=== PATIENT | female | born 1955 | race Caucasian/White ===

== ENCOUNTER 2021-10-16 13:17 | Outpatient (CLI) | payer OTHER, SELFPAY ==
--- NOTE | ~2021-10-16 | MMUS_ITS ---
EXAMINATION: MM diagnostic yuan BI w leidy, US breast LT limited HISTORY: Palpable lump in the upper, central left breast, patient reports history of recent breast tr auma. TECHNIQUE: Craniocaudal, mediolateral, and mediolateral oblique 3-D tomosynthesis images of the breas ts were performed and synthetic 2-D images were generated. CAD analysis was submitted and interpreted . High resolution limited left breast ultrasound was performed. COMPARISON: No prior mammogram is currently available for comparison BREAST PARENCHYMAL COMPOSITION: There are scattered areas of fibroglandular density. FINDINGS: MAMMOGRAPHIC FINDINGS: Scattered benign-appearing calcifications are present. There is no evidence of suspicious mass, calci fication, or architectural distortion in either breast to suggest malignancy. No mammographic correl ate is identified for the reported palpable abnormality of the left breast. ULTRASOUND: There is no evidence of focal abnormal solid or cystic mass in the vicinity of the reported palpable abnormality of the left breast. There is somewhat heterogeneous echotexture of the breast at this loc ation, suggestive of resolving breast hematoma. IMPRESSION: 1. No suspicious mammographic or sonographic correlate is identified for the reported palpable abnorm ality of concern of the left breast Further evaluation at this time should be based on clinical asses sment. Continued follow-up physical examination is recommended. 2. Recommend routine screening mammography in one year. BI-RADS Category 2: Benign finding(s). Reviewed, dictated and finalized at location A. TH OFFICER IMPRESSION: 1. No suspicious mammographic or sonographic correlate is identified for the re ported palpable abnormality of concern of the left breast Further evaluation at this time should be based on clinical assessment. Continued follow-up physical examination is recommended. 2. Recommend routine screening mammography in one year. BI-RADS Category 2: Benign finding(s).
== END 2021-10-16 13:18 | disposition home or self-care (01) ==
LOC: ANHIMG 13:21
PROVIDERS: Visit Provider Internal Medicine Gastroenterology
DX: R92.8 Other abnormal and inconclusive findings on diagnostic imaging of breast (principal); S29.9XXA Unspecified injury of thorax, initial encounter
CPT/HCPCS: 76642; 77062; 77066; G0279

== ENCOUNTER 2022-03-25 11:04 | Outpatient (CLI) | payer MEDICARE, MEDICAID, SELFPAY ==
--- NOTE | 2022-03-25 12:00 | NEURO_ITS ---
Impression: # Complains of numbness of hands. # No Carpal Tunnel Syndrome or ulnar neuropathy. # Left median sensory neuropathy. # Needle/EMG exam not neurogenic but decreased motor unit potentials noted. Nerve Conduction Studies Anti Sensory Summary Table Stim Site NR Peak (ms) P-T Amp (?V) Site1 Site2 Delta-P (ms) Dist (cm) Gadiel (m/s) Left Median Anti Sensory (2-3nd Digit) NO RESPONSE Wrist NR Wrist 2-3nd Digit 14.0 Wrist NR Wrist 2-3nd Digit 14.0 Right Median Anti Sensory (2-3nd Digit) Wrist 3.1 24.5 Wrist 2-3nd Digit 3.1 14.0 45 Wrist 3.1 8.4 Wrist 2-3nd Digit 3.1 14.0 45 Left Radial Anti Sensory (Base 1st Digit) Wrist 2.5 12.1 Wrist Base 1st Digit 2.5 0.0 Right Radial Anti Sensory (Base 1st Digit) Wrist 2.4 20.6 Wrist Base 1st Digit 2.4 0.0 Left Ulnar Anti Sensory (5th Digit) Wrist 2.2 61.1 Wrist 5th Digit 2.2 14.0 64 Right Ulnar Anti Sensory (5th Digit) Wrist 2.4 42.9 Wrist 5th Digit 2.4 14.0 58 Motor Summary Table Stim Site NR Onset (ms) O-P Amp (mV) Site1 Site2 Delta-0 (ms) Dist (cm) Gadiel (m/s) Left Median Motor (Abd Poll Brev) Wrist 3.4 1.0 Elbow Wrist 5.5 28.0 51 Elbow 8.9 0.3 Right Median Motor (Abd Poll Brev) Wrist 3.3 2.5 Elbow Wrist 5.4 28.0 52 Elbow 8.7 2.8 Left Ulnar Motor (Abd Dig Minimi) Wrist 2.7 5.8 A Elbow Wrist 5.3 31.0 58 A Elbow 8.0 4.5 Right Ulnar Motor (Abd Dig Minimi) Wrist 2.5 4.4 A Elbow Wrist 5.4 29.0 54 A Elbow 7.9 3.7 F Wave Studies NR F-Lat (ms) L-R F-Lat (ms) Left Median (Mrkrs) (Abd Poll Brev) 27.90 0.04 Right Median (Mrkrs) (Abd Poll Brev) 27.86 0.04 Left Ulnar (Mrkrs) (Abd Dig Min) 28.91 1.21 Right Ulnar (Mrkrs) (Abd Dig Min) 30.12 1.21 EMG Side Muscle Nerve Root Ins Act Fibs Amp Dur Recrt Comment Right 1stDorInt Ulnar C8-T1 Nml Nml Nml Nml Reduced Right Ext Indicis Radial (Post Int) C7-8 Nml Nml Nml Nml Nml Right Ext Digitorum Radial (Post Int) C7-8 Nml Nml Nml Nml Nml Right BrachioRad Radial C5-6 Nml Nml Nml Nml Nml Right PronatorTeres Median C6-7 Nml Nml Nml Nml Nml Right Abd Poll Brev Median C8-T1 Nml Nml Nml Nml Reduced Left 1stDorInt Ulnar C8-T1 Nml Nml Nml Nml Reduced Left Ext Indicis Radial (Post Int) C7-8 Nml Nml Nml Nml Nml Left Ext Digitorum Radial (Post Int) C7-8 Nml Nml Nml Nml Nml Left BrachioRad Radial C5-6 Nml Nml Nml Nml Nml Left PronatorTeres Median C6-7 Nml Nml Nml Nml Nml Left Abd Poll Brev Median C8-T1 Nml Nml Nml Nml Reduced Right ABD Dig Min Ulnar C8-T1 Nml Nml Nml Nml Reduced Left ABD Dig Min Ulnar C8-T1 Nml Nml Nml Nml Reduced MTDD
== END 2022-03-25 11:05 | disposition home or self-care (01) ==
LOC: ANHNEURO 11:09
PROVIDERS: Visit Provider Internal Medicine Gastroenterology
DX: G56.12 Other lesions of median nerve, left upper limb (principal); R20.0 Anesthesia of skin
CPT/HCPCS: 95886; 95911

== ENCOUNTER 2022-05-19 10:16 | Outpatient (CLI) | payer MEDICARE, MEDICAID, SELFPAY ==
--- NOTE | 2022-05-19 11:00 | NEURO_ITS ---
Impression: # Complains of nerve dysfunction. Unable to dorsiflex toes. # Borderline asymmetrical neuropathy. # Mildly abnormal needle/EMG exam of EDL. # Clinical correlation recommended. Nerve Conduction Studies Anti Sensory Summary Table Stim Site NR Peak (ms) P-T Amp (?V) Site1 Site2 Delta-P (ms) Dist (cm) Gadiel (m/s) Left Sup Fibular Anti Sensory (Ant Lat Mall) 14 cm 3.4 14.2 14 cm Ant Lat Mall 3.4 16.0 47 Right Sup Fibular Anti Sensory (Ant Lat Mall) 14 cm 3.4 15.8 14 cm Ant Lat Mall 3.4 16.0 47 Left Sural Anti Sensory (Lat Mall) Calf 3.0 5.6 Calf Lat Mall 3.0 16.0 53 Right Sural Anti Sensory (Lat Mall) Calf 3.2 11.6 Calf Lat Mall 3.2 16.0 50 Motor Summary Table Stim Site NR Onset (ms) O-P Amp (mV) Site1 Site2 Delta-0 (ms) Dist (cm) Gadiel (m/s) Left Peroneal Motor (Vastus Med) Ankle 4.5 2.9 Popit Ankle 9.3 41.0 44 Popit 13.8 2.3 Right Peroneal Motor (Vastus Med) Ankle 4.0 3.8 Popit Ankle 8.8 36.0 41 Popit 12.8 3.1 Left Tibial Motor (Abd Delarosa Brev) Ankle 4.1 3.9 Knee Ankle 10.6 42.0 40 Knee 14.7 2.8 Right Tibial Motor (Abd Delarosa Brev) Ankle 4.5 2.9 Knee Ankle 9.3 39.0 42 Knee 13.8 1.4 F Wave Studies NR F-Lat (ms) L-R F-Lat (ms) Left Peroneal (Mrkrs) (EDB) 56.42 0.00 Right Peroneal (Mrkrs) (EDB) 56.42 0.00 Left Tibial (Mrkrs) (Abd Hallucis) 56.29 0.08 Right Tibial (Mrkrs) (Abd Hallucis) 56.21 0.08 EMG Side Muscle Nerve Root Ins Act Fibs Amp Dur Recrt Comment Right AntTibialis Dp Br Fibular L4-5 Nml Nml Nml Nml Nml Right Gastroc Tibial S1-2 Nml Nml Nml Nml Nml Right Fibularis Long Sup Br Fibular L5-S1 Nml Nml Nml Nml Nml Right Flex Dig Long Tibial L5-S2 Nml Nml Nml Nml Nml Right Ext Dig Brev Dp Br Fibular L5, S1 Nml Nml Nml Nml Nml Left AntTibialis Dp Br Fibular L4-5 Nml Nml Nml Nml Nml Left Gastroc Tibial S1-2 Nml Nml Nml Nml Nml Left Fibularis Long Sup Br Fibular L5-S1 Nml Nml Nml Nml Nml Left Flex Dig Long Tibial L5-S2 Nml Nml Nml Nml Nml Left Ext Dig Brev Dp Br Fibular L5, S1 Nml Nml Nml Nml Nml Right Ext Dig Long Dp Br Fibular L5-S1 Nml Nml Nml Nml Reduced Left Ext Dig Long Dp Br Fibular L5-S1 Nml Nml Nml Nml Reduced MTDD
== END 2022-05-19 10:17 | disposition home or self-care (01) ==
LOC: ANHNEURO 10:18
PROVIDERS: Visit Provider Internal Medicine Gastroenterology
DX: G35 Multiple sclerosis (principal); G62.9 Polyneuropathy, unspecified; R94.131 Abnormal electromyogram [EMG]
CPT/HCPCS: 95886; 95910

== ENCOUNTER 2024-04-14 10:50 | Outpatient (CLI) | payer MEDICARE, SELFPAY ==
--- NOTE | 2024-04-14 13:45 | NEURO_ITS ---
Clinical note: Patient is 69 years old with history of paresthesias in both upper limbs. On examination significant atrophy of the thenar muscle was noted on both sides. This study is being performed for further evaluation of peripheral neurologic conditions. The results are as follows. Summary of findings: 1. Left and right median palmar and digital sensory were absent. Left and right radial sensory distal latencies and amplitudes were within normal limits. Left and right ulnar sensory distal latencies were within normal limits however amplitudes were mildly decreased on the right and normal on the left side. 2. Left median motor over abductor pollicis brevis was absent was right median motor distal initial moderately prolonged amplitude was markedly decreased. 3. Left and right median and ulnar motor studies were performed while recording over 2nd lumbrical and 2nd interossei. Median motor distal latency was mildly prolonged on the right and comparable on the left side however median motor amplitudes were significantly decreased. 4. Left and right ulnar motor distal latencies amplitudes and conduction velocities were within normal limits. There is no significant slowing across the elbow. 5. EMG and nerve study shows significant denervation changes in the right abductor pollicis brevis and significant decreased motor unit recruitment. No motor units were identified in the left abductor pollicis brevis. Impression: This study supportive diagnosis profoundly severe bilateral carpal tunnel syndrome. It should be noted there is a greater involvement of the median motor branch to the thenar muscles. No motor unit recruitment was noted in the left abductor pollicis brevis were significant denervation changes and marked loss of recruitment was noted in the right abductor pollicis brevis. Remainder of the findings are considered essentially within acceptable normal limits. No supportive evidence for ulnar neuropathy or brachial plexopathy or C5-T1 radiculopathy. Please feel free to call me if you have any questions with regard to study. Ruth Rolle MD, FAAN, FAANEM Neurology / Electrodiagnostic Medicine Nerve Conduction Studies Anti Sensory Summary Table Stim Site NR Peak (ms) P-T Amp (?V) Site1 Site2 Delta-P (ms) Dist (mm) Gadiel (m/s) Left Median DIII Anti Sensory (3rd Digit) no Wrist NR Wrist 3rd Digit 145 Right Median DIII Anti Sensory (3rd Digit) Wrist NR Wrist 3rd Digit 130 Left Radial Anti Sensory (Base 1st Digit) Wrist 2.1 20.7 Wrist Base 1st Digit 2.1 80 38 Right Radial Anti Sensory (Base 1st Digit) Wrist 2.0 20.2 Wrist Base 1st Digit 2.0 80 40 Left Ulnar Anti Sensory (5th Digit) Wrist 2.9 14.8 Wrist 5th Digit 2.9 125 43 Right Ulnar Anti Sensory (5th Digit) Wrist 3.5 24.4 Wrist 5th Digit 3.5 140 40 Motor Summary Table Stim Site NR Onset (ms) O-P Amp (mV) Site1 Site2 Delta-0 (ms) Dist (mm) Gadiel (m/s) Left (Lum2/Int2) Median/Ulnar motor 3.0 0.9 2.6 5.6 Right (Lum2/Int2) Median/Ulnar motor 3.3 1.4 2.6 4.8 Left Median Motor (Abd Poll Brev) no Wrist NR Wrist Wrist 0 Elbow NR Wrist Elbow 225 Right Median Motor (Abd Poll Brev) Wrist 4.9 0.4 Wrist Wrist 0.0 0 Elbow 8.2 0.1 Wrist Elbow 3.3 210 64 Left Ulnar Motor (Abd Dig Minimi) Wrist 2.4 6.8 Wrist Wrist 0.0 80 B Elbow 6.2 6.2 B Elbow Wrist 3.8 220 58 A Elbow 7.6 5.5 A Elbow B Elbow 1.4 80 57 Right Ulnar Motor (Abd Dig Minimi) Wrist 2.7 5.9 Wrist Wrist 0.0 80 B Elbow 6
== END 2024-04-14 10:51 | disposition home or self-care (01) ==
PROVIDERS: PCP Internal Medicine Gastroenterology; Visit Provider Psychiatry & Neurology Neurology
DX: E11.9 Type 2 diabetes mellitus without complications (principal); G56.03 Carpal tunnel syndrome, bilateral upper limbs; G62.9 Polyneuropathy, unspecified; R27.0 Ataxia, unspecified; R29.6 Repeated falls
CPT/HCPCS: 95886; 95913

== ENCOUNTER 2024-05-12 10:58 | Outpatient (CLI) | payer MEDICARE, SELFPAY ==
--- NOTE | 2024-05-12 12:40 | NEURO_ITS ---
Clinical note: The patient is 68 years old with history of paresthesias in both feet and legs. Also has pain in the lower back for last 15 years. History of falling at home. On brief neurological examination no focal muscle wasting or fasciculations were seen in lower limbs. Summary of findings: 1. Bilateral H reflex latencies were mildly prolonged and amplitudes are moderately decreased. 2. Bilateral sural and right medial plantar sensory were absent. Right peroneal sensory Distal latency andamplitude was within acceptable normal limits. 3. Bilateral peroneal motor distal latencies and conduction velocities were within acceptable normal limits however amplitudes were moderately decreased. 4. Bilateral tibial motor distal latencies and conduction velocities were within acceptable normal limits however amplitudes were mildly decreased. 5. EMG examination performed were muscles in both lower limbs in L3-S1 distribution and related paraspinal muscles were examined. No denervation changes were seen. Motor unit amplitude, duration and recruitment pattern where within acceptable normal limits. Impression: EMG and nerve conduction study of both lower limbs show evidence of mild moderate, length dependent, diffuse, sensory motor polyneuropathy of axonal type. Clinical and a trilogy correlation are recommended. There is no supportive evidence for L3 to S1 radiculopathy at this time. However radiographic correlation should be considered if clinically relevant. SLAVA REDD MD, FAAN, FAANEM Neurology / Electrodiagnostic Medicine Nerve Conduction Studies Motor Nerve Results Latency Amplitude Segment Distance CV CV Site (ms) Norm (mV) Norm (mm) (m/s) Norm Left Fibular (EDB) Motor Ankle 3.9 < 6.1 1.53 > 2.0 Bel Fib Head 10.6 - 1.36 - Bel Fib Head-Ankle 280 42 > 38 Pop Fossa 11.7 - 1.14 - Pop Fossa-Bel Fib Head 65 59 > 42 Right Fibular (EDB) Motor Ankle 4.4 < 6.1 1.65 > 2.0 Bel Fib Head 11.0 - 1.46 - Bel Fib Head-Ankle 280 42 > 38 Pop Fossa 12.4 - 1.40 - Pop Fossa-Bel Fib Head 70 50 > 42 Left Tibial (AHB) Motor Ankle 5.1 < 6.1 5.5 > 4.4 Knee 14.1 - 3.3 - Knee-Ankle 400 44 > 39 Right Tibial (AHB) Motor Ankle 4.5 < 6.1 4.0 > 4.4 Knee 14.2 - 2.4 - Knee-Ankle 380 39 > 39 Sensory Nerve Results Latency (Peak) Amplitude (P-P) Segment Distance CV CV Site (ms) Norm (?V) Norm (mm) (m/s) Norm Right Medial Plantar (Mixed) Sensory Med Sole-Med Mall NR < 3.7 > 10 Med Sole-Med Mall 80 - Left Superficial Fibular Sensory 14 cm-Ankle 3.2 - 10 > 5 14 cm-Ankle 100 31 > 32 Left Sural Sensory Calf-Lat Mall NR < 4.0 NR > 5 Calf-Lat Mall 140 NR > 35 Right Sural Sensory Calf-Lat Mall NR < 4.0 NR > 5 Calf-Lat Mall - NR > 35 H-Reflex Results M-Lat H Lat H-M Lat Site (ms) (ms) Norm (ms) Left Tibial H-Reflex Pop Fossa - 39.6 - - Right Tibial H-Reflex Pop Fossa 4.7 38.3 - 33.6 Electromyography Side Muscle Nerve Ins Act Fibs Psw Amp Dur Recrt Comment Right BicepsFemS Sciatic Nml Nml Nml Nml Nml Nml Right Semimembranosus Sciatic Nml Nml Nml Nml Nml Nml Right AntTibialis Dp Br Fibular Nml Nml Nml Nml Nml Nml Right Gastroc Tibial Nml Nml Nml Nml Nml Nml Right VastusMed Femoral Nml Nml Nml Nml Nml Nml Left BicepsFemS Sciatic Nml Nml Nml Nml Nml Nml Left Semimembranosus Sciatic Nml Nml Nml Nml Nml Nml Left AntTibialis Dp Br Fibular Nml Nml Nml Nml Nml Nml
[2024-05-12 13:09] LABS: Basophils Percent Auto 0.6 % (0.2-1.2); Eosinophils Absolute Auto 0.2 K/mm3 (0-0.3); Eosinophils Percent Auto 2.5 % (0-4.4); Hematocrit 33.2 % (37.0-47.0); Hemoglobin 10.5 g/dL (12.0-15.0); Immature Granulocyte Absolute 0.02 K/mm3 (0.00-0.031); Immature Granulocyte Percent A 0.3 % (0-0.5); Lymphocytes Absolute Auto 1.06 K/mm3 (0.9-3.2); Lymphocytes Percent Auto 14.6 % (18.3-44.2); Mean Corpuscular HGB Conc 31.6 g/dl (32-36); Mean Corpuscular Hemoglobin 28.2 pg (26-34); Mean Platelet Volume 8.8 fl (7.4-10.4); Monocytes Absolute Auto 0.3 K/mm3 (0.1-0.6); Monocytes Percent Auto 4.7 % (2.6-8.5); Neutrophils Absolute Auto 5.6 K/mm3 (1.3-6.7); Neutrophils Percent Auto 77.3 % (45.5-73.1); Platelet Count Result 218 k/mm3 (150-375); Red Blood Count 3.73 M/mm3 (4.2-5.4); Red Cell Distribution Width 13.7 % (11.5-14.5); White Blood Count 7.3 K/mm3 (4.5-10.0)
[2024-05-12 13:15] LABS: Alanine Aminotransferase 21 U/L (6-35); Albumin Level 4.5 g/dL (3.5-5.1); Alkaline Phosphatase 123 U/L (38-126); Anion Gap 13 mmol/L (4-12); Aspartate Amino Transferase 33 U/L (14-36); Bilirubin,Total 0.3 mg/dL (0.2-1.3); Blood Urea Nitrogen 29 mg/dL (7-17); Calcium 9.1 mg/dL (8.4-10.2); Carbon Dioxide 26 mmol/L (22-30); Chloride 102 mmol/L (98-107); Estimated Glomerular Filt Rate 30; Glucose 82 mg/dL (65-110); Potassium 4.5 mmol/L (3.4-5.0); Sodium 141 mmol/L (137-145)
[2024-05-12 13:46] LABS: Thyroid Stimulating Hormone 0.152 uIU/mL (0.465-4.680)
[2024-05-12 14:28] LABS: Vitamin B12 > 1000.0 pg/mL (239-931)
[2024-05-12 15:25] LABS: Free T4 Free Thyroxine 1.64 ng/mL (0.78-2.19)
[2024-05-14 03:03] LABS: Triiodothyronine T3 Free 2.7 pg/mL (2.3-4.2)
[2024-05-15 11:08] LABS: Homocysteine 16.5 umol/L (<10.4)
[2024-05-16 07:09] LABS: Red Blood Cell Folate 664
[2024-05-16 16:03] LABS: Vitamin D 1,25 (OH)2 Total 43 pg/mL (18-72); Vitamin D2 1,25 (OH)2 <8 pg/mL; Vitamin D3 1,25 (OH)2 43 pg/mL
[2024-05-17 07:48] LABS: Methylmalonic Acid 254
[2024-05-18 08:58] LABS: Vitamin B6 63.8 ng/mL (2.1-21.7)
[2024-05-19 07:19] LABS: Vitamin B1 13
== END 2024-05-12 10:59 | disposition home or self-care (01) ==
LOC: ANHNEURO 11:06
PROVIDERS: PCP Internal Medicine Gastroenterology; Visit Provider Psychiatry & Neurology Neurology
DX: G60.8 Other hereditary and idiopathic neuropathies (principal); E55.9 Vitamin D deficiency, unspecified; G56.03 Carpal tunnel syndrome, bilateral upper limbs; R27.0 Ataxia, unspecified; R29.6 Repeated falls; E11.9 Type 2 diabetes mellitus without complications
CPT/HCPCS: 36415; 80053; 82607; 82652; 82747; 83090; 83921; 84207; 84425; 84439; 84443; 84481; 85025; 86038; 86039; 86334; 95886; 95910

== ENCOUNTER 2024-06-08 07:21 | Day surgery (SDC) | payer MEDICARE, OTHER, SELFPAY ==
[2024-05-31 08:49] VITALS: BMI 22.8
--- NOTE | 2024-06-08 07:05 | WPDHPUPDATE1 ---
History and Physical Update Update Date/Time: 06/08/24 07:05 Patient seen and examined in pre-operative holding area. No interval change in medical history or symptoms. Patient recalls previous discussion of benefits and alternatives to procedure. Continues to desire to proceed with left endoscopic possible open carpal tunnel release. Reviewed procedure, post-op expectations and risks including but not limited to bleeding, infection, injury to tendon/nerve/vessel, decreased hand function, stiffness, RSD, no change or worsening of symptoms. I discussed the possible use of assistants and their participation in the case. Patient stated understanding and signed the consent form wishing to proceed.
--- NOTE | 2024-06-08 07:06 | P.OP_ITS ---
Procedure Note - Detailed Date of Procedure 06/08/24 Pre-op Diagnosis Carpal Tunnel Syndrome Left Hand Post-op Diagnosis Same Procedure Performed left ectr Surgeon Tracy Almonte MD Waistline Joiner Lockstitch mayela mendoza pa-c Anesthesia MAC Description of Procedure INFORMED CONSENT: The patient was seen and examined and marked in the pre-op area.? The patient signed the consent form. PROCEDURE IN DETAIL:The patient taken back to OR on the stretcher in supine position. Time out performed with anesthesia, surgeon and staff agreeing on patient's name site and surgery to be performed SCDs were placed on the lower extremities and inflated. A tourniquet was placed on {left} upper extremity and antibiotics given IV After anesthesia administered sedation I injected {5}cc 1%lido with epi and 0.5% marcaine plain at the operative site The?{left upper extremity}?was prepped and draped in sterile fashion the??{left upper extremity} was? exsanguinated with Esmarch bandage and tourniquet inflated to 250mmHg I made a transverse incision in the {left} volar distal wrist crease through skin and dermis with 15 blade scalpel.? Littler scissors spread down to antebrachial fascia. A small incision was made in antebrachial fascia allowing access to Carpal tunnel. I proceeded with sequential dilation staying in line with the ring finger and hugging the hook of the hamate.? I then used the synovial elevator to free any adhesions from the underside of the transverse carpal ligament. Next I was able to insert the Microaire endoscopic carpal tunnel device with direct visualization of the transverse fibers on the monitor and proceeded with complete segmental retrograde release of the ligament in its entirety.? I irrigated with normal saline and closed with 4-0 monocryl for dermis and subcuticular closure. A dressing of Dermabond, 4x4, gerardo, and a volar splint was applied for patient safety, security, and comfort and secured with an ck bandage after the tourniquet was let down noting the hand was warm and well perfused. The patient was then awaken from anesthesia and transferred to the recovery room in stable condition.? Complications - none EBL- 0cc Disposition - home in stable conditions mayela mendoza pa-c was essential for positioning, retraction, closure and dressing placement [facility] [place] Billing Surgery - Charge Forward: Surgery Billing ([id number] for mayela)
[2024-06-08 08:51] VITALS: BP 132/67; PULSE 88; RESP 20; TEMP 37.5; O2SAT 100
[2024-06-08 08:52] VITALS: BMI 25.1
[2024-06-08] MEDS: LACTATED RINGERS 1,000 ML 30 ML IV CONT (09:04)
--- NOTE | 2024-06-08 09:04 | WPDANESEPPF ---
Anes - Initial Pre Proc Eval Procedure: Operation Date: 06/08/24 10:00 Proposed Procedures p Left Endoscopic Carpal Tunnel Release, Possible Open Carpal Tunnel Release - Tracy Almonte MD Date/Time: 06/08/24 09:04 Surgeon: Tracy Almonte MD Pre Op Diagnosis: Carpal Tunnel Syndrome Left Hand Patient Data Age: 69 Gender: F Height: 1.7 m Weight: 72.7 kg Last Vital Signs Temp 37.5 C 06/08/24 08:51 Pulse 88 06/08/24 08:51 Resp 20 06/08/24 08:51 BP 132/67 06/08/24 08:51 Pulse Ox 100 06/08/24 08:51 O2 Del Method Room Air 06/08/24 08:51 Allergies Allergy/AdvReac Type Severity Reaction Status Date / Time prochlorperazine Allergy Intermediate Other Verified 06/08/24 08:45 [From Compazine] Home Medications Medication Instructions Recorded Confirmed Type amlodipine 10 mg tablet 10 mg PO DAILY 06/11/22 06/08/24 History cinacalcet 30 mg tablet 30 mg PO DAILY 06/11/22 06/08/24 History duloxetine 60 mg capsule,delayed 60 mg PO DAILY 06/11/22 06/08/24 History release levothyroxine 125 mcg capsule 125 mcg PO DAILY 06/11/22 06/08/24 History lisinopril 40 mg tablet 40 mg PO DAILY 06/11/22 06/08/24 History methylphenidate HCl 5 mg tablet 5 mg PO DIRECTED 06/11/22 06/08/24 History oxycodone-acetaminophen 5 mg-325 1 tablet PO Q8H PRN Pain 06/11/22 06/08/24 History mg tablet pantoprazole 40 mg tablet,delayed 40 mg PO BID 06/11/22 06/08/24 History release potassium chloride 10 mEq 10 meq PO DAILY 06/11/22 06/08/24 History capsule,extended release rosuvastatin 20 mg tablet 20 mg PO DAILY 06/11/22 06/08/24 History tizanidine 4 mg capsule 4 mg PO Q6H PRN other 06/11/22 06/08/24 History gabapentin 600 mg tablet 600 mg PO .COMPLEX #120 tabs 04/05/24 06/08/24 Rx amitriptyline 50 mg tablet 50 mg PO QHS #30 tabs 05/04/24 06/08/24 Rx mesalamine 1.2 gram tablet,delayed 2.4 g PO DAILY 05/15/24 06/08/24 History release Prevagen 1 tablet PO DAILY 05/31/24 06/08/24 History aspirin 81 mg tablet 81 mg PO DAILY 05/31/24 06/08/24 History furosemide 40 mg tablet 40 mg PO DAILY PRN Edema 05/31/24 06/08/24 History Patient hx anesthesia problems: none Family hx anesthesia problems: none Results Review: All pre-operative results and documents have been reviewed as part of the pre-operative evaluation. [facility] Past Medical History Medical History Ataxia Carpal tunnel syndrome on both sides Disorder of smooth muscle Falls frequently Generalized osteoarthritis of multiple sites GERD (gastroesophageal reflux disease) Hiatal hernia Hypoparathyroidism Hypothyroidism Injury of left breast Insomnia Iron deficiency anemia Multiple joint pain Multiple sclerosis Narcolepsy Paresthesia and pain of both upper extremities Peripheral neuropathy Spasm Surgical History Surgical History S/P gastrectomy Social History Social History Smoking status: Never smoker Second hand tobacco smoke exposure: Yes Alcohol intake: never Substance use: never Substance use type: does not use Do You Feel Safe in your Home?: Yes Lack of Transportation: YES Lack of Food: Sometimes True Current Housing: I Have Housing Concerned About Future Housing: No Difficulty Paying Gas/Electric Bills: YES Difficulty Paying for Meds: No Currently Unemployed: No Education: Associate Degree Difficulty w/ Childcare or Family Care: No Living arrangements: alone Spiritual care concerns: No Anes - Eval Final PreProcedure Day of Procedure 06/08/24 09:04 Patient weight: normal Heart: regular rate and rhythm Lungs: clear to auscultation Airway: Mallampati scale class III Neurological: alert and oriented Last oral intake: >/= 8 hours ASA classification: III Emergent: no Anesthetic plan: proceed Anesthesia type and monitor
[2024-06-08] MEDS: ceFAZolin SODIUM 2 GM/20 ML SW SYRINGE IV PUSH (09:09)
[2024-06-08] MEDS: LIDO 1%/EPINEPHRINE 1:100,000 50 ML VIAL INFILTRATE (09:16)
[2024-06-08] MEDS: BUPivacaine HCL 0.5% 10 ML AMP 3 ML INFILTRATE (09:16)
[2024-06-08 09:32] VITALS: BP 85/38; PULSE 80; RESP 16; O2SAT 100
[2024-06-08 09:45] VITALS: BP 105/41; PULSE 87; RESP 16; O2SAT 96
[2024-06-08 10:10] VITALS: BP 121/83; PULSE 77; RESP 20; O2SAT 96
--- NOTE | 2024-06-08 10:36 | WPDANESPN ---
Anes - Prog Note Post-Op Date/Time: 06/08/24 10:36 Cardiovascular status: normal Respiratory status: normal Airway patency: baseline Mental status: baseline Post-Op hydration status: normal Vital Signs: Last Vital Signs Temp 37.5 C 06/08/24 08:51 Pulse 77 06/08/24 10:10 Resp 20 06/08/24 10:10 BP 121/83 06/08/24 10:10 Pulse Ox 96 06/08/24 10:10 O2 Del Method Room Air 06/08/24 10:10 O2 Flow Rate 6 06/08/24 09:32 Pain Score (VAS): 0/10 I/O: Intake & Output 06/07/24 06/08/24 06/08/24 23:59 07:59 15:59 Intake Total 200 Balance 200 Patient Feedback: Patient satisfied with anesthetic care.
== END 2024-06-08 10:20 | disposition home or self-care (01) ==
PROVIDERS: PCP Internal Medicine Gastroenterology; Visit Provider Plastic Surgery
PROC: 01N54ZZ Release Median Nerve, Percutaneous Endoscopic Approach (ICD-10-PCS; CPT 29848; principal; 2024-06-08 10:00)
DX: G56.02 Carpal tunnel syndrome, left upper limb (principal)
CPT/HCPCS: 29848

== ENCOUNTER 2025-03-14 14:52 | Outpatient (CLI) | payer MEDICARE, MEDICAID, SELFPAY ==
--- NOTE | ~2025-03-14 | CT_ITS ---
CT ANGIOGRAM NECK AND HEAD History: Amaurosis fugax. Technique: Axial noncontrast imaging of the brain was performed. Serial spiral axial images through t he head and neck were then obtained during arterial phase IV injection of 100 cc of Omnipaque 350. 3- D postprocessing and MIP images were then reconstructed on the remote workstation. Dose reduction johann hnique was used on this scan by utilizing automated exposure control and iterative reconstruction johann hnique. The dose-length product (DLP) was 1566.78 mGy-cm. CTA neck findings: Bilateral vertebral arteries are patent. Bilateral common carotid, internal carot id, and external carotid arteries are patent. No significant stenosis. No large vessel occlusion. No aneurysm. The proximal right internal carotid artery demonstrates 0% stenosis relative to the normal distal artery lumen diameter. The proximal left internal carotid artery demonstrates 0% stenosis rela tive to the normal distal artery lumen diameter. CTA head findings: Distal vertebral arteries, basilar artery, and posterior cerebral arteries are pat ent. Distal internal carotid arteries, middle cerebral arteries, and anterior cerebral arteries are p atent. No large vessel occlusion or stenosis. No aneurysm. Axial noncontrast imaging of the brain is unremarkable. No acute infarct, internal hemorrhage or mass lesion seen. No mass effect or midline shift. Castro differentiation intact. The ventricles and subara chnoid spaces are unremarkable. There is pansinusitis, with opacification in particular of the with e xercise, bilateral ethmoid sinuses, and left frontal sinus, and additional mucosal thickening in the remaining sinuses as well. Mastoid air cells are clear. Impression: No significant vascular abnormality seen. Extensive sinus disease, as above. Reviewed, dictated and finalized at [facility]. Impression: No significant vascular abnormality seen. Extensive sinus disease, as above.
[2025-03-14 15:16] LABS: Estimated Glomerular Filt Rate 37
== END 2025-03-14 14:53 | disposition home or self-care (01) ==
LOC: MICIMG 14:53
PROVIDERS: PCP Internal Medicine Gastroenterology; Visit Provider Psychiatry & Neurology Neurology
DX: G45.3 Amaurosis fugax (principal); I65.29 Occlusion and stenosis of unspecified carotid artery
CPT/HCPCS: 70496; 70498; Q9967

== ENCOUNTER 2025-03-27 15:59 | Outpatient (CLI) | payer MEDICARE, MEDICAID, SELFPAY ==
--- NOTE | ~2025-03-27 | XR_ITS ---
XR chest 2V 03/27/2025 16:23 Indication: Viral infection Procedure: 2 views of the chest Comparison: No prior studies for comparison. Findings: Heart size normal. Large hiatal hernia with air-fluid level. No focal air space disease, pu lmonary edema, pleural effusion or suspected pneumothorax. Impression: 1: No acute cardiopulmonary disease. 2: Large hiatal hernia. Reviewed, dictated and finalized at location A. Impression: 1: No acute cardiopulmonary disease. 2: Large hiatal hernia.
--- OUTSIDE RECORDS SUMMARY | 2025-03-27 16:04 | XMS_ITS | Encounter Summary ---
Author Organization [facility] Address [address] [place] [address] Phone Care Team Providers Care Ground Nuclear Weapons Assembly Officer Name Role Phone Kassidy Owen MD Primary Care Provider [phone] Stanton White MD, Kedar Unavailable [phone] Kelly Salvador MD Unavailable [phone] Tracy Archibald MD Primary Care Provider Isatu Taylor [employer]ER Unavailable [phone] Encounter Details Date Type Department Care Team (Latest Contact Info) Description 04/23/2020 Orders Only [facility] Scanning, Provider Social History Tobacco Use Types Packs/Day Years Used Date Smoking Tobacco: Never Assessed Comments Unknown Sex and Gender Information Value Date Recorded Sex Assigned at Not on file Legal Sex Female 4:11 AM FEED HANDLER Gender Identity Not on file Sexual Orientation Not on file documented as of this encounter Plan of Treatment Not on file documented as of this encounter Procedures Procedure Name Priority Date/Time Associated Diagnosis Comments SCAN - LABS 04/23/2020 documented in this encounter Results * SCAN - LABS (04/23/2020) us Provider Scanning Final Result documented in this encounter Visit Diagnoses Not on filedocumented in this encounter Additional Health Concerns Infection Onset Date Last Indicated Resolved Time 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 difficile Comment:2015 infection 05/13/2014 05/12/2014 01/28/2023 8:09 A M CDT COVID: Suspected 10/20/2024 10/20/2024 10/20/2024 7:28 PM FEED HANDLER COVID19 10/20/2024 10/20/2024 11/05/2024 3:05 AM FEED HANDLER COVID: Suspected Comment:Pt tested COVID 19 positive on 10/20/24 10/21/2024 10/21/2024 10/21/2024 11:03 PM FEED HANDLER documented as of this encounter Care Teams Ground Nuclear Weapons Assembly Officer Relationship Specialty Start Date End Date Kassidy Owen MD PCP - General 06/12/19 11/06/21 Tracy Archibald MD [address] [place] [id number] PCP - General Gastroenterology 11/07/21 Kedar Eid Jr., MD Medical Oncologist/Chemical Handler Medical Oncology 07/02/20 01/24/23 Kelly Salvador MD Referring Physician Gastroenterology 07/26/20 Isatu Taylor, [employer]ER [address] [place] [id number] Nurse Practitioner Medical Oncology 01/25/23 documented as of this encounter
--- OUTSIDE RECORDS SUMMARY | 2025-03-27 16:04 | XMS_ITS | Clinical Summary ---
Author Organization [facility] Address [address] [place] [address] Care Team Providers Care Telehealth Nurse Name Role Phone Kassidy Owen MD Primary Care Provider Unavailabl e Source Comments [facility],non-owned Affiliates and Associated Physician Practices is amultiple site organization consisting of ambulatory clinics and hospital sitesin [place], [place], [place] and [place]. This disclosure is being madepursuant to the Care Everywhere program and may not contain all information available regarding this patient. Last updated 18.[facility] [employer] Allergies Active Allergy Reactions Criticality Noted Date Comments Compazine Syrup Anaphylaxis High 04/19/2012 Prochlorperazine Anaphylaxis High 04/19/2012 Medications * Be aware that medications may not be up to date on this document. Alwaysverify current medications with the patient. amLODIPine (NORVASC) 10 MG tablet 09/23/2018 Active clonazePAM (KLONOPIN) 0.5 MG tablet 09/16/2018 Active DULoxetine (CYMBALTA) 30 MG capsule 09/21/2018 Active esomeprazole (NEXIUM) 40 MG capsule 07/19/2018 Active gabapentin (NEURONTIN) 100 MG capsule 07/04/2018 Active influenza quadrivalent vac (FLUZONE QUAD) 0.5 ML injection ADM 0.5ML IM UTD 0 07/07/2018 Active levothyroxine (SYNTHROID) 125 MCG tablet 09/01/2018 Active lisinopril (PRINIVIL; ZESTRIL) 40 MG tablet 09/23/2018 Active methylphenidate (RITALIN) 10 MG tablet 09/13/2018 Active oxyCODONE-acetamin ophen (PERCOCET) 7.5-325 MG tablet 09/16/2018 A ctive potassium chloride ER (KLOR-CON) 10 MEQ tablet 07/19/2018 Active rosuvastatin (CRESTOR) 20 MG tablet 09/01/2018 Active sertraline (ZOLOFT) 100 MG tablet 08/09/2018 Active Active Problems Problem Noted Date Diagnosed Date Low vitamin D level 10/04/2018 Iron deficiency anemia 04/25/2012 Overview (10/04/2018): Overview: Hgb = 8.1. ? Etiology. -Ferritin 26 -Transferrin 330 -TIBC 3 -Iron: 13 -Started Ferrous Gluconate Hgb = 8.1. ? Etiology. -Ferritin 26 -Transferrin 330 -TIBC 3 -Iron: 13 -Started Ferrous Gluconate Intestinal infection due to Clostridium difficil e 04/25/2012 Overview (10/04/2018): Overview: Improving. ~4-5 slightly less than pudding consistency stools per day. More manageable per patient. -ID, GI consulted -Likely 6 months of PO Vancomycin per ID -Continue Vancomycin 125mg PO Q6H -No fever, leukocytosis Improving. 4-5 slightly less than pudding consistency stools per day. More manageable per patient. -ID, GI consulted -Likely 6 months of PO Vancomycin per ID -Continue Vancomycin 125mg PO Q6H -No fever, leukocytosis Multiple sclerosis 04/23/2012 Overview (10/04/2018): Overview: Stable. Not on any meds at home. Residual LE weakness and slight dysarthria at times -Uses ambulatory tools at home -PT/OT to eval/treat Stable. Not on any meds at home. Residual LE weakness and slight dysarthria at times -Uses ambulatory tools at home -PT/OT to eval/treat Hypothyroidism 04/23/2012 Overview (10/04/2018): Overview: Stable. TSH = 0.37 -Continue Synthroid Stable. TSH = 0.37 -Continue Synthroid Hypertension 04/23/2012 Overview (10/04/2018): Overview: Stable. SBP 130-140. -On lisinopril, Norvasc at home --> Held in ICU 2/2 hypotension -Restart tomorrow if BP stable Stable. SBP 130-140. -On lisinopril, Norvasc at home --> Held in ICU 2/2 hypotension -Restart tomorrow if BP stable Family History Medical History Relation Name Comments Diabetes - Type 2 Mother Thyroid Disease Other 1 Thyroid Disease Other 2 Relation Name Status Comments Mother Other 1 Other 2 Social History Tobacco Use Types Packs/Day Years Used Date Smoking Tobacco: Never Smokeless Tobacco: Never Alcohol Use Standard Drinks/Week Comments No 0 (1 standard drink = 0.6 oz pur e alcohol) Comments No Sex and Gender Information Value Date Recorded Sex Assigned at Not on file Legal Sex Female 7:01 PM CLERICAL STOCK INSPECTOR Gender Identity Not on file Sexual Orientation Not on file Last Filed Vital Signs Vital Sign Reading Time Taken Comments Blood Pressure 140/80 10/04/2018 3:48 PM CLERICAL STOCK INSPECTOR Pulse 109 10/04/2018 3:48 PM CLERICAL STOCK INSPECTOR Temperature 36.7 C (98.1 F) 10/04/2018 3:48 PM CLERICAL STOCK INSPECTOR Respiratory Rate - - Oxygen Saturation 90% 10/04/2018 3:48 PM CLERICAL STOCK INSPECTOR Inhaled Oxygen Concentration - - Weight 82.1 kg (181 lb) 10/04/2018 3:48 PM CLERICAL STOCK INSPECTOR Height - - Body Mass Index - - Plan of Treatment Health Maintenance Due Date Last Done Comments BONE DENSITY TESTING 1955 COLOGUARD (AGES 45-75) - COL ON CA SCREENING 1955 COLON MONITORING 1955 COLONOSCOPY - COLON CA SCREENING 1955 CT COLONOGRAPHY - COLON CA SCREENING 1955 Colorectal Cancer Screening 1955 FIT - COLON CA SCREENING 1955 FLEX SIG - COLON CA SCREENING 1955 MAMMOGRAM 1955 DTAP/TDAP/TD VACCINES (1 - Tdap) 1974 PNEUMOCOCCAL VACCINE 50+ (1 of 1 - PCV) 2005 ZOSTER VACCINE (1 of 2) 2005 COVID-19 VACCINE ( - 2023-2 5 season) 2024 DEPRESSION SCREENING 10/25/2024 INFLUENZA VACCINE (Season Ended) 2025 07/06/20 18 Respiratory Syncytial Virus (RSV) Vaccine Pt: or over 60 yrs (1 - 1-dose 75+ series) 2030 HEPATITIS C SCREENING Completed 04/21/2012 HEPATITIS B VACCINE Aged Out No longe r eligible based on patient's age to complete this topic HIB VACCINE Aged Out No longer eligi ble based on patient's age to complete this topic HPV VACCINE Aged Out No longer eligi ble based on patient's age to complete this topic MENINGOCOCCAL (Group B) VACC INE SHARED DECISION-MAKING Aged Out No longer eligibl e based on patient's age to complete this topic MENINGOCOCCAL GROUPS A/C/Y/W VACCINE Aged Out No longer eligible b ased on patient's age to complete this topic Procedures Procedure Name Priority Date/Time Associated Diagnosis Comments HEPATITIS C AB W RFLX VERIFICATION Routine 04/21/2012 12:15 PM CDT from Last 3 Months or Most Recently Relevant to Health Maintenance Results * HEPATITIS C AB W RFLX VERIFICATION (04/21/2012 12:15 PM CDT) Donor Hepatitis C Antibody RFX Negative Negative [facility] Comment: Test performed with [employer] Hepatitis C Virus Antibody kit version 3.0. Performed at: [facility] [address] [place] [id number] Ballet Teacher: Tommy Valerio PhD, Phone: [phone] 04/21/2012 12:1 5 PM CDT 04/21/2012 12:35 PM CDT us Brian Aleman MD LAB - CHEMISTRY ORDERABLES F inal Result [address] [phone] from Last 3 Months or Most Recently Relevant to Health Maintenance Insurance MEDICARE [facility] MANAGED MEDICARE ADV Care Teams Telehealth Nurse Relationship Specialty Start Date End Date Kassidy Owen MD PCP - General 11/23/11
--- OUTSIDE RECORDS SUMMARY | 2025-03-27 16:04 | XMS_ITS | Data Portability ---
Author Organization [place] [facility], Main Office Address [address] [place] [address] Care Team Providers Care All Source Analyst Name Role Phone AYO LEWIS Primary Care Provider [phone] AYO LEWIS Referring Provider Assessment Encounter Date Assessment Date Assessment LastModified by Organization Details LastModified Time 05/19/2023 05/19/2023 67 year old female presents for her right shoulder. She is a patient of Dr. Shipman's who is being transferred to my care. She has a history of massive rotator cuff tear failing extensive conservative management including NSAIDs, therapy, activity modification, and cortisone injection which was done in November. She was on his schedule for a shoulder scope with balloon arthroplasty but he is leaving the practice. She is right hand dominant. Review of systmes per patient questionnaire Diffuse tenderness around the shoulder. ROM 100/10/buttocks. Full passive ROM. Weakness with external rotation and elevation. Neurovascular intact throughout the extremity. She has stiffness and crepitus on the contralateral shoulder. XR of the shoulder reviewed, demonstrating high riding humeral head with preservation of the glenohumeral joint space, minimal DJD changes. I agree with Dr. Shipman's assessment and plan that she would be a good candidate for balloon arthroplasty given her rotator cuff tear with high riding humeral head, minimal glenohumeral DJD, retained active ROM without pseudoparalysis, age, and activity level. After extensive discussion of the risks, benefits, and alternatives, she elected to proceed with surgery. Risks include but not limited to pain, bleeding, blood clot, infection, stiffness, need for future surgery, injury to nerve or vessel, risks of anesthesia. Not available 05/21/2023 23:54:51 06/16/2023 06/16/2023 68-year-old female presents for follow-up of her right shoulder status post arthroscopy and balloon arthroplasty on 06/03/2023. Overall she is doing well, no specific complaints. She currently rates her pain as 3/10. Reports her shoulder feels better. She is not taking any pain medications. Incisions are well healed. Sutures removed and redressed with Steri-Strips. She has no pain with gentle pendulums. She has good range of motion of the elbow, wrist, and hand. Sensation to light touch throughout, 2+ radial pulse. Overall doing well approximately 2 weeks after surgery. We will have her follow-up in 2 weeks for recheck. We reviewed the rehab process with her. Not available 06/22/2023 00:37:20 06/30/2023 06/30/2023 68-year-old female presents for follow-up of her right shoulder status post balloon arthroplasty on 06/03/2023. Overall she is doing well, currently rates her pain as 2/10. She has been doing range of motion exercises and has significantly improved range of motion. Her main complaint is that she can not reach all the way to the side and behind her back yet. She is not taking any pain medications. She has been doing physical therapy. She also has a new complaint, for her left thumb. She has a history of thumb CMC arthritis. This has been bothering her more her more lately. She previously saw Dr. Shipman for this as well, and was told that she should get as a soft brace, but she has not been able to get that yet. The pain is located over the base of the thumb, worse with activities and grasping. Shoulder incision is well healed without erythema drainage or other signs of infection. She has range of motion 150/30/lower lumbar, no pain. The motion she reportedly lacks is extending and externally rotating her arm behind her back. With regards to her left thumb, she has pain at the thumb CMC joint, positive grind. She has sensation intact to light touch throughout thumb. X-rays of the shoulder were reviewed, demonstrating superior migration of the humeral head. We discussed that she has good range of motion and no pain in her right shoulder, which is a successful outcome. She should continue working with physical therapy on her shoulder for range of motion and strengthening. We discussed that the motion she describes as not being able to do is not common with everyday activities, and she has good function with movements in front and to the side of her body. We will at have her continue physical therapy and follow up in 6 weeks. With regards to her left thumb, she has basilar thumb arthritis symptoms, and we will begin with a thumb spica splint to help immobilize. She may take anti-inflammator ies as needed and modify her activity. Not available 06/30/2023 16:51:41 08/11/2023 08/11/2023 68-year-old female presents for follow-up of her right shoulder status post balloon arthroplasty on 06/03/2023. Overall she is doing well, currently rates her pain as 3/10. She has still been working with PT to increase her ROM and strength. It is still painful at times when she overdoes it. Shoulder incision is well healed without erythema drainage or other signs of infection. She has range of motion 150/30/lower lumbar, no pain. She should continue working with physical therapy on her shoulder for range of motion and strengthening. She states that she would like to have her left shoulder operated on in the future, but wants her right shoulder to be stronger before proceeding with that. We will see her back 2 months for recheck. Not available 08/12/2023 18:39:58 10/13/2023 10/13/2023 68-year-old female presents for follow-up of her right shoulder status post balloon arthroplasty on 06/03/2023. Overall she is doing well, currently rates her pain as 3/10. She has finished her PT and feels that it has increased her ROM and strength. It is still painful at times when she overdoes it. Shoulder incision is well healed without erythema drainage or other signs of infection. She has range of motion 150/30/lower lumbar. Pain with lifting overhead and behind. She should continue working on physical therapy exercises at home. She would like us to order a omaira system that she can use at home. She states that she would like to have her left shoulder operated on in the future, we discussed that a balloon arthoplasty would not likely be a good option due to her arthritis and that a total shoulder replacement would need to be done. She is not interested in pursuing that at this time. We can see her back as needed for pain in the future. Not available 10/13/2023 18:53:09 Plan of Treatment Reminders Order Date Submit Date Provider Last Modified By Organization Details Last Modified Time Details Appointments None recorded. Lab None recorded. Referral physical therapist referral - EVAL [facility] TREAT 2022 023 [place] [facility] [place], [address], [place], [address], 11:33:20 Procedures None recorded. Surgeries None recorded. Imaging XR, shoulder, 2 or more view 2022 023 [place] [facility] [place], [address], [place], [address], 10:56:21 Medication Orders None recorded. Patient TargetsNo targets recorded. Patient InstructionsNo instructions recorded. Reason for Referral Physical Therapist Referral for Full thickness rotator cuff tear [facility]AL [facility] TREAT Referring Physician: Benjamin Zarate, Orthopedic Surgery, Encounter Date: 06/30/2023 Results Created Date Observation Date Name Description Value Unit Range Abnormal Flag Note LastModifiedBy Organization Detail LastModifiedTime 06/01/20 23 elect rocar diogr am No observ ation record ed. [email or web address] Not Available 05/2023 15:41:45 06/30/20 23 XR, shoul karlie, 2 or more view No observ ation record ed. [email or web address] [facility] [place] [address], [place], [address], 06/30/2023 16:03:51 Result Notes None recorded. Problems Name Problem SNOMED Code Status Onset Date Resolution Date Notes Provider Name and Address Organization Details Recorded Time Bilateral shoulder joint pain 44323864987308 104 Active 2022 TONE Kam[place], [place] [employer] [facility] 3 16:05:35 Full thickness rotator cuff tear 137538742 Active 2022 Benjamin Zarate MD [address] [place] [address], [facility] [address], [place], [address], [facility] [employer] [facility] 3 23:55:05 Pain of right shoulder joint 57421071292795 100 Active 2022 Sophie Crespo , PILI L null, [facility] [employer] [facility] 3 15:43:29 Problem Notes None recorded. Procedures Surgical History Date Name Laterality Status Provider Name and Address Organization Details Recorded Time dilation of pyloric stricture completed Not Available [facility] 12/23/2022 16:25:40 Cholecystectomy completed Not Available [facility] 12/23/2022 16:25:40 incision of stomach completed Not Available [facility] 12/23/2022 16:25:40 Imaging Results None recorded. Procedure Notes None recorded. Medical Equipment None Reported. Allergies Allergen ID Allergen Name Allergen Category Reaction Reaction Severity Criticality Documentation Date Start Date Code Code System Note Provider Name and Address Organization Details Recorded Time 94252 Compazine medicatio n Not available Not available Not available 12/23/202240231 6 RxNorm Not Available [facility] 3 16:26:54 Medications Name Sig Start Date Stop Date Status Note LastModified by Organization Details LastModified Time amoxicillin 500 mg capsule TAKE 1 CAPSULE BY MOUTH THREE TIMES DAILY 12/22 completed Not Available Not Available Not Available furosemide 40 mg tablet TAKE 1 TABLET BY MOUTH EVERY DAY NEEDED active Not Available Not Available No t Available fluconazole 100 mg tablet TAKE 1 TABLET BY MOUTH TWICE DAILY active Not Available Not Available No t Available gabapentin 600 mg tablet TAKE 1 TABLET BY MOUTH EVERY DAY AT BEDTIME active Not Available Not Available No t Available azithromyci n 250 mg tablet active Not Available Not Available Not Available tizanidine 4 mg tablet TAKE 1 TABLET BY MOUTH FOUR TIMES DAILY NEEDED active Not Available Not Available No t Available fluconazole 150 mg tablet TAKE 1 TABLET BY MOUTH EVERY DAY active Not Available Not Available No t Available methylpheni date 10 mg tablet TAKE 1 TABLET BY MOUTH EVERY DAY active Not Available Not Available No t Available hydrocodone 5 mg-acetamin ophen 325 mg tablet TAKE 1 TO 2 TABLETS BY MOUTH EVERY 4 TO 6 HOURS NEEDED FOR PAIN. MAX OF 8 TABLETS PER DAY. 08/04 completed Not Available Not Available Not Available ondansetron HCl 8 mg tablet TAKE 1 TABLET BY MOUTH THREE TIMES DAILY active Not Available Not Available No t Available ondansetron HCl 4 mg tablet TAKE 1 TABLET BY MOUTH THREE TIMES DAILY NEEDED 10/05 completed Not Available Not Available Not Available methylpheni date 5 mg tablet TAKE 1 TABLET BY MOUTH EVERY DAY AT NOON active Not Available Not Available No t Available sertraline 100 mg tablet TAKE 1 TABLET BY MOUTH EVERY DAY active Not Available Not Available No t Available permethrin 5 % topical cream 12/22 completed Not Available Not Available Not Available potassium chloride ER 10 mEq tablet,exte nded release TAKE 1 TABLET BY MOUTH EVERY DAY active Not Available Not Available No t Available dexamethaso ne sodium phosphate 0.1 % eye drops INSTILL 1 DROP IN BOTH EYES FOUR TIMES DAILY FOR 5 DAYS 10/05 completed Not Available Not Available Not Available oxycodone-a cetaminophe n 5 mg-325 mg tablet TAKE 1 TABLET BY MOUTH EVERY 8 HOURS NEEDED active Not Available Not Available No t Available amitriptyli ne 25 mg tablet TAKE 2 TABLETS BY MOUTH EVERY DAY IN THE EVENING 12/22 completed Not Available Not Available Not Available Kenalog 10 mg/mL suspension for injection In office injection administe red by the provider 10/[address] [facility]: [phone] Not Available Not Available Not Available amlodipine 10 mg tablet TAKE 1/2 TABLET BY MOUTH TWICE DAILY. HOLD IF SYSTOLIC BLOOD PRESSURE IS LESS THAN 120 active Not Available Not Available No t Available doxycycline monohydrate 100 mg capsule 10/05 completed Not Available Not Available Not Available cephalexin 500 mg capsule TAKE 1 CAPSULE BY MOUTH TWICE DAILY active Not Available Not Available No t Available pantoprazol e 40 mg tablet,darren yed release TAKE 1 TABLET BY MOUTH TWICE DAILY active Not Available Not Available No t Available Desenex 2 % topical powder active Not Available Not Available Not Available levothyroxi ne 125 mcg tablet TAKE 1 TABLET BY MOUTH EVERY DAY active Not Available Not Available No t Available nystatin 100,000 unit/gram topical cream APPLY LOCALLY DIRECTED WITH A THIN COAT TO THE AFFECTED AREA 4-5 TIMES DAILY X 10 DAYS active Not Available Not Available No t Available mupirocin 2 % topical ointment active Not Available Not Available Not Available gabapentin 100 mg capsule 12/22 completed Not Available Not Available Not Available lisinopril 40 mg tablet TAKE 1 TABLET BY MOUTH DAILY FOR BLOOD PRESSURE active Not Available Not Available No t Available sertraline 50 mg tablet TAKE 1 TABLET BY MOUTH EVERY DAY 12/22 completed Not Available Not Available Not Available amitriptyli ne 100 mg tablet TAKE 1 TABLET BY MOUTH EVERY DAY NEEDED 12/22 completed Not Available Not Available Not Available amoxicillin 875 mg-martinez m clavulanate 125 mg tablet TAKE 1 TABLET BY MOUTH TWICE DAILY FOR 5 DAYS 06/16 completed Not Available Not Available Not Available rosuvastati n 20 mg tablet TAKE 1 TABLET BY MOUTH EVERY DAY active Not Available Not Available No t Available cinacalcet 30 mg tablet TAKE 1 TABLET BY MOUTH DAILY active Not Available Not Available No t Available duloxetine 60 mg capsule,del ayed release TAKE 1 CAPSULE BY MOUTH EVERY MORNING active Not Available Not Available No t Available ropivacaine (PF) 5 mg/mL (0.5 %) injection solution IN OFFICE 10/[address] [facility] [phone] Not Available Not Available Not Available [employer] COVID-19 Ag Self Test kit TEST DIRECTED TODAY 10/05 completed Not Available Not Available Not Available Vitals Date Recorded Body height Body mass index (BMI) Body weight Provider Name and Address Organization Details Last Updated DateTime 05/19/2023 170.18 cm 25.1 kg/m2 42630.78 PILI Brown [facility] [employer] 05/19/2023 16:02:02 Date Recorded Body height Body mass index (BMI) Body weight Provider Name and Address Organization Details Last Updated DateTime 06/16/2023 170.18 cm 23.5 kg/m2 55016.86 [employer] [employer] 06/16/2023 15:30:48 Date Recorded Body height Body mass index (BMI) Body weight Provider Name and Address Organization Details Last Updated DateTime 06/30/2023 162.56 cm 26.1 kg/m2 20811.04 PILI Brown [employer] Mary Clarissa [employer] 06/30/2023 15:43:07 Date Recorded Body height Body mass index (BMI) Body weight Provider Name and Address Organization Details Last Updated DateTime 08/11/2023 162.56 cm 27.5 kg/m2 97883.78 PILI Brown [facility] [place] [employer] 08/11/2023 15:54:41 Date Recorded Body height Body mass index (BMI) Body weight Provider Name and Address Organization Details Last Updated DateTime 10/13/2023 162.56 cm 26.1 kg/m2 58745.04 g Radha Villeda [facility] [place] [facility] [place] [employer] 10/13/2023 15:46:13 Social History None recorded. Functional Status Question Answer Note LastModified by Organizat ion Details LastModified Time What is your level of alcohol consumption? None [id number] Information not available 12/23/2022 Mental Status None recorded. Family History Relationship Description Onset Age of this Age Resolved Age Notes LastModified by Organization Details LastModified Time Unspecified Relation Diabetes mellitus [id number] Not available 12/23/2022 16:25:40 Unspecified Relation Kidney disease [id number] Not available 12/23/2022 16:25:40 Medical History Condition Response ANEMIA/BLOOD DISORDER Y Gynecological HistoryNo gynecological history recorded. Obstetrics History GPAL:G 0 P 0 0 0 0 Past Encounters Encounter ID Performer Location Encounter Start Date Encounter Closed Date Diagnosis/Indication Diagnosis SNOMED-CT Code Diagnosis ICD10 Code Diagnosis Note [id number] Derek Shipman MD [facility] [place] [address] [place] [address] 12/22/2022 00:00:00 12/22/2022 17:52:09 [id number] Derek Shipman MD [facility] [place] [address] [place] [address] 05/05/2023 15:59:58 05/05/2023 17:11:48 Bilateral shoulder joint pain 5934377902 6173554 M25.511 M25.512 patient would be an excellent candidate for a balloon arthroplas ty on the right as she is maintained over 90 of forward elevationO n the left the patient has less forward elevation but still might be a good candidate for the balloon arthroplas ty if she does well on the right as neither shoulder is bone-on-sb ne both showing still fairly good joint space maintenanc e despite a little bit of bone spur formation around the inferior portion of the humeral head on both sides now. I will set her up to see Dr. Zarate to schedule the balloon arthroplas ty for the right shoulder. If the patient does quite well on the right then she might be a good candidate for the left afterwards . The early studies are showing about 90% improvemen t in the 1st year which drops down to 85-87% in the 3rd through 4th year and the early results are showing about 80% a few years after that. About 10% of patients are getting a 2nd balloon done sometime in the 2nd 3rd or 4th year depending on symptoms. [id number] Benjamin Zarate MD [facility] [place] [address] [place] [address] 05/19/2023 15:59:00 05/19/2023 16:30:37 Full thickness rotator cuff tear 478508300 M75.121 [id number] Benjamin Zarate MD [facility] [place] [address] [place] [address] 06/16/2023 15:28:32 06/16/2023 15:48:29 Full thickness rotator cuff tear 336217130 M75.986 [id number] Benjamin Zarate MD [facility] [place] [address] [place] [address] 06/30/2023 15:33:56 06/30/2023 16:34:41 Pain of right shoulder joint 6101928230 4031963 M25.511 Full thick ness rotator cuff tear 186596037 M75.628 [id number] Benjamin Zarate MD [facility] [place] [address] [place] [address] 08/11/2023 15:44:44 08/11/2023 16:11:22 Full thickness rotator cuff tear 864860897 M75.064 [id number] Benjamin Zartae MD [facility] [place] [address] [place] [address] 10/13/2023 15:44:03 10/13/2023 16:08:47 Bilateral shoulder joint pain 1944410281 9689255 M25.511 M25.512 Pain of ri ght shoulder joint 7943994264 1548242 M25.511 Health Concerns Section Related Observation LastModified by Organization Detai ls LastModified Time None Recorded Concern Status LastModified by Organization Details LastModified Time None Recorded Advance Directives Directive None Recorded Payers Encounter Date Sequence Insurance Name Policy Number Policy Harrell Covered Member ID Harrell Member ID Guarantor Name 05/19/2023 1 [facility] (MEDICARE REPLACEMENT/AD VANTAGE - PPO) [id number] Carla A Airhart [id number] Carla A Airhart 06/16/2023 1 [facility] (MEDICARE REPLACEMENT/AD VANTAGE - PPO) [id number] Carla A Airhart [id number] Carla A Airhart 06/30/2023 1 [facility] (MEDICARE REPLACEMENT/AD VANTAGE - PPO) [id number] Carla A Airhart [id number] Carla A Airhart 08/11/2023 1 [facility] (MEDICARE REPLACEMENT/AD VANTAGE - PPO) [id number] Carla A Airhart [id number] Carla A Airhart 08/11/2023 2 [place]ICARE REPLACEMENT PRIMARY) Carla A Airhart [id number] Carla A Airhart 10/13/2023 1 [facility] (MEDICARE REPLACEMENT/AD VANTAGE - PPO) [id number] Carla A Airhart [id number] Carla A Airhart 10/13/2023 2 [place]ACEMENT [place]IMARY) Carla A Airhart [id number] Carla A Airhart OBGyn Episode No OBEpisode recorded.
--- OUTSIDE RECORDS SUMMARY | 2025-03-27 16:04 | XMS_ITS | Referral Summary ---
Author Organization [facility] Address [address] [place] [address] Care Team Providers Care Farmer And Grazier Name Role Phone Kelly Salvador MD Unavailable [phone] Tracy Archibald MD Primary Care Provider Isatu Taylor NP Unavailable [phone] Encounters Date Type Department Care Team Description 03/06/2025 Orders Only [facility] Hematology [address] [place] [address] 6 [place] [address] Ana Catherine RN 03/06/2025 2:00 PM CDT Infusion [facility] [place] at [address] [address] Iron deficiency anemia, unspecified iron deficiency anemia type (Primary Dx) 02/26/2025 2:30 PM CDT Lab [facility] at [address] [address] Iron deficiency anemia, unspecified iron deficiency anemia type 02/26/2025 3:00 PM CDT Office Visit [facility] Physicians [facility] Hematology [address] [place] [phone] Yola Acevedo NP Iron deficiency anemia, unspecified iron deficiency anemia type (Primary Dx); Palpitations; Other fatigue 02/23/2025 Orders Only [facility] Hematology [facility] [address] [place] [address] Angie Longo Iron deficiency anemia, unspecified iron deficiency anemia type (Primary Dx) 02/23/2025 Telephone [facility] Hematology [address] [facility] Floor 6 [place] [address] Angie Longo from Last 3 Months Allergies Active Allergy Reactions Criticality Noted Date Comments Prochlorperazine Anaphylaxis,Unknown High 04/19/2012 Anaphylaxis Medications amLODIPine (NORVASC) 10 mg tablet Take 0.5 tablets (5 mg total) by mouth 2 (two) times a day 0 Active cinacalcet (SENSIPAR) 30 mg tablet Take 1 tablet (30 mg total) by mouth daily [address] (CYMBALTA) 60 mg capsule Take 1 capsule (60 mg total) by mouth daily 0 Active gabapentin (NEURONTIN) 600 mg tablet Take 1 tablet (600 mg total) by mouth 2 (two) times a day with meals 8 Active levothyroxine (SYNTHROID) 125 mcg tablet Take 1 tablet (125 mcg total) by mouth endoscopic technician before breakfast 0 Active lisinopriL (PRINIVIL,ZESTR IL) 40 mg tablet Take 1 tablet (40 mg total) by mouth daily 0 Active methylphenidate HCl (RITALIN) 10 mg tablet Take 1 tablet (10 mg total) by mouth every morning [address] (PROTONIX) 40 mg EC tablet Take 1 tablet (40 mg total) by mouth daily 0 Active potassium chloride ER 10 mEq CR tablet Take 1 tablet/capsule (10 mEq total) by mouth daily 0 Active rosuvastatin (CRESTOR) 20 mg tablet Take 1 tablet (20 mg total) by mouth daily 0 Active tiZANidine (ZANAFLEX) 4 mg tablet Take 1 tablet (4 mg total) by mouth every 6 (six) hours as needed for muscle spasms 0 Active gabapentin (NEURONTIN) 600 mg tablet Take 2 tablets (1,200 mg total) by mouth nightly Active methylphenidate HCl (RITALIN) 5 mg tablet Take 1 tablet (5 mg total) by mouth with lunch 1200 Active ondansetron (ZOFRAN) 4 mg tablet Take 1 tablet (4 mg total) by mouth every 8 (eight) hours as needed for nausea or vomiting Active furosemide (LASIX) 40 mg tablet Take 1 tablet (40 mg total) by mouth daily Active oxymetazoline (AFRIN) 0.05 % nasal spray Administer 2 sprays into each nostril 2 (two) times a day as needed for congestion Active aspirin 325 mg enteric coated tablet Take 1 tablet (325 mg total) by mouth daily Active cyanocobalamin (Vitamin B-12) 1,000 mcg tablet Take 1 tablet (1,000 mcg total) by mouth daily Active vit C,L-Bo-ggijb-alton tein-zeaxan (PreserVision AREDS-2) 250-90-40-1 mg capsule Take 1 capsule by mouth daily Active oxyCODONE-aceta minophen (PERCOCET) 5-325 mg per tablet Take 1 tablet by mouth every 4 (four) hours as needed (pain 5-10) 12 tablet 3 Active albuterol HFA (PROVENTIL HFA,VENTOLIN HFA,PROAIR HFA) 90 mcg/actuation inhaler Inhale 2 puffs every 6 (six) hours as needed for wheezing 1 each 5 Active benzocaine-ment hoL (CHLORASEPTIC) 6-10 mg lozenge Take 1 lozenge by mouth every 4 (four) hours as needed for sore throat 100 tablet 5 Active benzonatate (TESSALON) 100 mg capsuleIndicati ons:Cough Take 1 capsule (100 mg total) by mouth 3 (three) times a day as needed for cough 20 capsule 5 Active miconazole 2 % cream Apply topically 2 (two) times a day 28.35 g 5 Active thiamine (VITAMIN B1) 100 mg tablet Take 1 tablet (100 mg total) by mouth daily 30 tablet 5 10/27/19 26 Active Active Problems Problem Noted Date Diagnosed Date COVID-19 10/25/2024 Anemia requiring transfusions 10/20/2024 Acute frontal sinusitis, recurrence not specifie d 01/28/2023 Sepsis 01/28/2023 Iron deficiency anemia 04/25/2012 Overview (06/26/2020): Hgb = 8.1. ? Etiology. -Ferritin 26 -Transferrin 330 -TIBC 3 -Iron: 13 -Started Ferrous Gluconate Hgb = 8.1. ? Etiology. -Ferritin 26 -Transferrin 330 -TIBC 3 -Iron: 13 -Started Ferrous Gluconate Iron deficiency anemia 04/25/2012 Overview (01/28/2023): Overview: Overview: Hgb = 8.1. ? Etiology. -Ferritin 26 -Transferrin 330 -TIBC 3 -Iron: 13 -Started Ferrous Gluconate Hgb = 8.1. ? Etiology. -Ferritin 26 -Transferrin 330 -TIBC 3 -Iron: 13 -Started Ferrous Gluconate Overview: Hgb = 8.1. ? Etiology. -Ferritin 26 -Transferrin 330 -TIBC 3 -Iron: 13 -Started Ferrous Gluconate Hgb = 8.1. ? Etiology. -Ferritin 26 -Transferrin 330 -TIBC 3 -Iron: 13 -Started Ferrous Gluconate Hypertension 04/23/2012 Overview (01/28/2023): Overview: Stable. SBP 130-140. -On lisinopril, Norvasc at home --> Held in ICU 2/2 hypotension -Restart tomorrow if BP stable Stable. SBP 130-140. -On lisinopril, Norvasc at home --> Held in ICU 2/2 hypotension -Restart tomorrow if BP stable Overview: Overview: Stable. SBP 130-140. -On lisinopril, Norvasc at home --> Held in ICU 2/2 hypotension -Restart tomorrow if BP stable Stable. SBP 130-140. -On lisinopril, Norvasc at home --> Held in ICU 2/2 hypotension -Restart tomorrow if BP stable Hypothyroidism 04/23/2012 Overview (01/28/2023): Overview: Stable. TSH = 0.37 -Continue Synthroid Stable. TSH = 0.37 -Continue Synthroid Overview: Overview: Stable. TSH = 0.37 -Continue Synthroid Stable. TSH = 0.37 -Continue Synthroid Multiple sclerosis 04/23/2012 Overview (01/28/2023): Overview: Stable. Not on any meds at home. Residual LE weakness and slight dysarthria at times -Uses ambulatory tools at home -PT/OT to eval/treat Stable. Not on any meds at home. Residual LE weakness and slight dysarthria at times -Uses ambulatory tools at home -PT/OT to eval/treat Overview: Overview: Stable. Not on any meds at home. Residual LE weakness and slight dysarthria at times -Uses ambulatory tools at home -PT/OT to eval/treat Stable. Not on any meds at home. Residual LE weakness and slight dysarthria at times -Uses ambulatory tools at home -PT/OT to eval/treat Immunizations Immunization Administration Dates Next Due Flucelvax Influenza Quad 09/02/2020 Influenza, Quadrivalent, Split, Intramuscular Influenza, Quadrivalent, Spl it, Preservative Free, Intramuscular 07/06/2018 Pneumococcal Polysaccharide PPV23 12/23/2021 Social History Tobacco Use Types Packs/Day Years Used Date Smoking Tobacco: Never Smokeless Tobacco: Never Alcohol Use Standard Drinks/Week Comments Never 0 (1 standard drink = 0.6 oz pur e alcohol) [facility] Utilities Answer Date Recorded In the past 12 months has [employer], gas, oil, or water [employer] threatened to shut off services in your home? Yes 10/23/2024 Social Connection and Isolation Panel [NHANES] A nswer Date Recorded In a typical week, how many times do you talk on the phone with family, friends, or neighbors? Twice a week 10/23/2024 How often do you get together with friends or re latives? Twice a week 10/23/2024 How often do you attend holiness or mu-ism serv ices? Never 10/23/2024 Do you belong to any clubs o r organizations such as holiness groups, unions, fraternal or athletic groups, or school groups? No 10/23/2024 How often do you attend meet ings of the clubs or organizations you belong to? Never 10/23/2024 Are you , , di vorced, , never , or living with a partner? 10/23/2024 AUDIT-C Answer Date Recorded Frequency of Alcohol Consumption Not on file 01/25/2023 Q2: How many drinks containi ng alcohol do you have on a typical day when you are drinking? Patient does not drink Frequency of Binge Drinking Not on file 12/2022 Overall Financial Resource Strain (CARDIA) Answe r Date Recorded How hard is it for you to pa y for the very basics like food, housing, medical care, and heating? Not very hard 10/23/2024 Hunger Vital Sign Answer Date Recorded Within the past 12 months, y ou worried that your food would run out before you got the money to buy more. Never true 10/23/20 24 Within the past 12 months, t he food you bought just didn't last and you didn't have money to get more. Never true 10/23/2024 PRAPARE - Transportation Answer Date Re corded In the past 12 months, has l ack of transportation kept you from medical appointments or from getting medications? No 09/26 In the past 12 months, has l ack of transportation kept you from meetings, work, or from getting things needed for daily living? No 10/23/2024 Housing Stability Vital Sign Answer David e Recorded In the last 12 months, was t here a time when you were not able to pay the mortgage or rent on time? No 10/23/2024 In the past 12 months, how m any times have you moved where you were living? 0 10/23/2024 At any time in the past 12 m [facility], were you homeless or living in a alf (including now)? No 10/23/2024 Personal Safety Answer Date Recorded Have you ever been in or are you currently in a harmful physical or emotional relationship or is someone making you feel afraid or unsafe? 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[employer] Gender Identity Not on file Sexual Orientation Not on file Last Filed Vital Signs Vital Sign Reading Time Taken Comments Blood Pressure 133/72 03/06/2025 4:19 PM CDT Pulse 94 03/06/2025 4:19 PM CDT Temperature 36.6 C (97.9 F) 03/06/2025 4:19 PM CDT Respiratory Rate 16 03/06/2025 4:19 PM CDT Oxygen Saturation 98% 03/06/2025 4:1 9 PM CDT Inhaled Oxygen Concentration - - Weight 70.2 kg (154 lb 12.8 oz) 03/06/2025 2:15 PM CDT Height 161.3 cm (5' 3.5) 02/26/2025 3: 00 PM CDT pt refused to remove shoes Body Mass Index 26.99 02/26/2025 3:00 PM CDT Plan of Treatment Not on file Procedures Procedure Name Priority Date/Time Associated Diagnosis Comments EGFR Routine 02/26/2025 2:50 PM CDT Iron deficiency anemia, unspecified iron deficiency anemia type DIFFERENTIAL AUTO Routine 02/26/2025 2:5 0 PM CDT Iron deficiency anemia, unspecified iron deficiency anemia type RETICULOCYTES Routine 02/26/2025 2:50 PM CDT Iron deficiency anemia, unspecified iron deficiency anemia type IRON PROFILE W/ IBC Routine 02/26/2025 2 :50 PM CDT Iron deficiency anemia, unspecified iron deficiency anemia type FERRITIN Routine 02/26/2025 2:50 PM CDT Iron deficiency anemia, unspecified iron deficiency anemia type COMPREHENSIVE METABOLIC PANEL Routine 02/26/2025 2:50 PM CDT Iron deficiency anemia, unspecified iron deficiency anemia type CBC WITH AUTO DIFFERENTIAL Routine 02/26/2025 2:50 PM CDT Iron deficiency anemia, unspecified iron deficiency anemia type HEPATITIS PANEL, ACUTE Routine 8:41 AM CDT OCCULT BLOOD, FECAL (FIT) Routine 04/08/2015 6:10 PM CDT from Last 3 Months or Most Recently Relevant to Health Maintenance Results * (ABNORMAL) eGFR (02/26/2025 2:50 PM CDT) eGFR 49(L) >=60 mL/min/1. 73 m2 Comment: Interpretive Data Reference Interval Normal >/= 90 mL/min/1.73m2 Mildly decreased* 60 - 89 mL/min/1.73m2 Mildly to moderately decreased 45 - 59 mL/min/1.73m2 Moderately to severely decreased 30 - 44 mL/min/1.73m2 Severely decreased 15 - 29 mL/min/1.73m2 Kidney Failure < 15 mL/min/1.73m2 *Relative to young adult level Estimated glomerular filtration rate is determined by the 2020 CKD-EPI equation recommended by the National Kidney Foundation (A Unifying Approach to GFR Estimation: Recommendations of the NKF-ASK Task Force on Reassessing the Inclusion of Race in Diagnosing Kidney Disease, JASN 2020). The CKD-EPI equation should not be used for patients with unstable renal function and has not been validated in children and those over 70. Current interpretive data was last reviewed 2021. Testing performed by: [address] [address] Blood 02/26/2025 2:50 PM CDT 02/26/2025 2:51 PM CDT Yola Acevedo NP LAB BLOOD ORDERABLES Final Result [facility] [address] [facility] Department [place] [address] * Differential, auto (02/26/2025 2:50 PM CDT) Neutrophil abs 5.49 1.50 - 6.50 K/cumm Comment:Testing performed by : [address] [address] Imm gran abs 0.01 0.00 - 0.10 K/cumm [facility] FUENTES Comment:Testing performed by : [address] [address] Lymphocyte abs 1.46 0.80 - 3.30 K/cumm [facility] Comment:Testing performed by : [address], [place]., [address] Monocyte abs 0.47 0.20 - 0.80 K/cumm [facility] Comment:Testing performed by : [address], [place]., [address] Eosinophil abs 0.27 0.00 - 0.50 K/cumm [facility] Comment:Testing performed by : [address], [place]., [address] Basophil abs 0.05 0.00 - 0.10 K/cumm [facility] Comment:Testing performed by : [address] [address] Neutrophil pct 70.9 % [facility] Comment: Interpretive Data Percent cell count reference ranges are not reported, since discordance with absolute values may lead to misinterpretation of CBC data. Current Interpretive Data was last revised on 2018. Testing performed by: [address] [address] Imm gran pct 0.1 % [facility] Comment: Interpretive Data Percent cell count reference ranges are not reported, since discordance with absolute values may lead to misinterpretation of CBC data. Current Interpretive Data was last revised on 2018. Testing performed by: [address] [address] Lymphocyte pct 18.8 % [facility] Comment: Interpretive Data Percent cell count reference ranges are not reported, since discordance with absolute values may lead to misinterpretation of CBC data. Current Interpretive Data was last revised on 2018. Testing performed by: [address] [address] Monocyte pct 6.1 % [facility] Comment: Interpretive Data Percent cell count reference ranges are not reported, since discordance with absolute values may lead to misinterpretation of CBC data. Current Interpretive Data was last revised on 2018. Testing performed by: [address] [address] Eosinophil pct 3.5 % [facility] Comment: Interpretive Data Percent cell count reference ranges are not reported, since discordance with absolute values may lead to misinterpretation of CBC data. Current Interpretive Data was last revised on 2018. Testing performed by: [address] [address] Basophil pct 0.6 % [facility] Comment: Interpretive Data Percent cell count reference ranges are not reported, since discordance with absolute values may lead to misinterpretation of CBC data. Current Interpretive Data was last revised on 2018. Testing performed by: [address] [address] Blood 02/26/2025 2:50 PM CDT 02/26/2025 2:51 PM CDT Yola Acevedo NP LAB BLOOD ORDERABLES Final Result Performing Organization Address [facility] de Phone Number [address] [place] [address] * (ABNORMAL) Iron profile w/ IBC (02/26/2025 2:50 PM CDT) Iron 30(L) 35 - 145 mcg/dL Comment:Testing performed by : [address] [address] TIBC 335 250 - 400 mcg/dL [facility] Comment:Testing performed by : [address] [address] Transferrin saturation 9(L) 20 - 50 % [facility] Comment:Testing performed by : [address] [address] Blood 02/26/2025 2:50 PM CDT 02/26/2025 3:53 PM CDT Yola Acevedo NP LAB BLOOD ORDERABLES Final Result Performing Organization Address [facility] de Phone Number [address] [place] [address] * (ABNORMAL) CBC with auto differential (02/26/2025 2:50 PM CDT) [facility] WBC 7.75 3.80 - 9.90 K/cumm Comment:Testing performed by : [address], [address] Hgb 10.2(L) 11.9 - 15.5 g/dL [facility] Comment:Testing performed by : [address], [address] Hct 32.6(L) 35.6 - 45.5 % [facility] Comment:Testing performed by : [address], [address] Plt 308 150 - 400 K/cumm [facility] Comment:Testing performed by : [address], [address] MPV 8.5(L) 9.1 - 12.3 fL [facility] Comment:Testing performed by : [address], [address] RBC 3.77(L) 3.90 - 5.20 M/cumm [facility] Comment:Testing performed by : [address], [address] MCV 86.5 81.3 - 96.4 fL [facility] Comment:Testing performed by : [address], [address] MCH 27.1 27.1 - 33.3 pg [facility] Comment:Testing performed by : [address], [address] MCHC 31.3(L) 32.3 - 35.7 g/dL [facility] Comment:Testing performed by : [address], [address] RDW CV 13.3 11.1 - 14.9 % [facility] Comment:Testing performed by : [address], [address] RDW SD 41.6 35.7 - 48.1 fL [facility] Comment:Testing performed by : [address], [address] NRBC abs 0.00 0.00 - 0.01 K/cumm [facility] Comment:Testing performed by : [address] [address] ANC Prelim 5.49 1.50 - 6.50 K/cumm [facility] Comment: Interpretive Data The rapid ANC is a preliminary automated count and may vary from the final ANC (Neut Abs) reported in the WBC differential that follows. Current interpretive data was last revised 2025. Testing performed by: [address] [address] Blood 02/26/2025 2:50 PM CDT 02/26/2025 2:51 PM CDT Yola Acevedo NP LAB BLOOD ORDERABLES Final Result Performing Organization Address [facility] de Phone Number [address] [employer] [place] [address] * (ABNORMAL) Reticulocyte Count (02/26/2025 2:50 PM CDT) Retics, absolute 68 20 - 87 K/cumm Comment:Testing performed by : [address] [address] Retics 1.8 0.4 - 2.9 % [facility] Comment:Testing performed by : [address] [address] Reticulocyte Hgb 29.4(L) 30.5 - 38.0 pg [facility] Comment:Testing performed by : [address] [address] Blood 02/26/2025 2:50 PM CDT 02/26/2025 2:51 PM CDT Yola Acevedo NP LAB BLOOD ORDERABLES Final Result Performing Organization Address [facility] de Phone Number [address] [place] [address] * Ferritin (02/26/2025 2:50 PM CDT) Ferritin 47 15 - 150 ng/mL Comment:Testing performed by : [address] [address] Blood 02/26/2025 2:50 PM CDT 02/26/2025 3:53 PM CDT Yola Acevedo NP LAB BLOOD ORDERABLES Final Result [facility] Department [place] [address] * (ABNORMAL) Comprehensive metabolic panel (02/26/2025 2:50 PM CDT) Pathologist [facility] [place] Sodium 142 135 - 145 mmol/L Comment:Testing performed by : [address] [address] Potassium, pl 4.2 3.3 - 4.9 mmol/L [facility] Comment:Testing performed by : [address] [address] Chloride 104 97 - 110 mmol/L [facility] Comment:Testing performed by : [address] [address] CO2 25 22 - 32 mmol/L [facility] Comment:Testing performed by : [address] [address] Anion gap 13 2 - 15 mmol/L [facility] Comment:Testing performed by : [address] [address] BUN 26(H) 6 - 25 mg/dL [facility] Comment:Testing performed by : [address] [address] Creatinine 1.20(H) 0.60 - 1.10 mg/dL [facility] Comment:Testing performed by : [address] [address] Glucose 134 70 - 199 mg/dL [facility] Comment: Interpretive Data Fasting glucose >/= 126 mg/dl is diagnostic for diabetes. Fasting is defined as no caloric intake for at least 8 hours. Fasting glucose between 100 mg/dl to 125 mg/dl is diagnostic of prediabetes. In a patient with classic symptoms of hyperglycemia or hyperglycemic crisis, a random glucose >/= 200 mg/dl is diagnostic for diabetes. In the absence of unequivocal hyperglycemia, results should be confirmed by repeat testing. The classification and Diagnosis of Diabetes Diabetes Care 202; 46: S19-S40. Current interpretive data was last revised 2022. Testing performed by: [address] [address] Calcium 9.2 8.5 - 10.3 mg/dL [facility] Comment:Testing performed by : [address] [address] Bilirubin, total <0.2 0.1 - 1.2 mg/dL [facility] Comment:Testing performed by : [address] [address] Protein, pl 7.5 6.5 - 8.5 g/dL [facility] Comment:Testing performed by : [address] [address] Albumin 4.3 3.5 - 5.0 g/dL [facility] Comment:Testing performed by : [address] [address] Alk phos 125 40 - 130 Units/L [facility] Comment:Testing performed by : [address] [address] ALT 12 7 - 45 Units/L [facility] Comment:Testing performed by : [address] [address] AST 21 10 - 45 Units/L [facility] Comment:Testing performed by : [address] [address] Blood 02/26/2025 2:50 PM CDT 02/26/2025 2:51 PM CDT us Yola Acevedo NP LAB BLOOD ORDERABLES Final Result [facility] [address] [facility] Department [place] [address] * Hepatitis panel, acute (01/30/2023 8:41 AM CDT) Hep A IgM Nonreactive Nonreactive [facility] Comment: Interpretive Data: If Hep A IgM Ab is reported as Equivocal, a new sample should be drawn in two weeks for testing. Current interpretive data was last revised on 20. Hep B core IgM Nonreactive Nonreactive [facility] Comment: Interpretive Data If HepB Core IgM Ab is reported as Equivocal, a new sample should be drawn in two weeks for testing. Current interpretive data was last revised on 20. Hep C Ab Nonreactive Nonreactive [facility] Comment: Interpretive Data Nonreactive: Antibodies to HCV not detected. Does NOT exclude the possibility of recent exposure to HCV. Equivocal: Equivocal for HCV antibodies. Supplemental molecular testing will be automatically performed to determine infection status in accordance with current CDC screening recommendations. Reactive: Positive for HCV antibodies. This may represent current or past HCV infection. Supplemental molecular testing will be automatically performed to determine current infection status in accordance with current CDC screening recommendations. Interpretive data was last revised on 2020. HepBsAg Nonreactive Nonreactive [facility] Blood 01/30/2023 8:41 AM CDT 01/30/2023 9:02 AM CDT us Laura Church DO LAB MICROBIOLOGY - GENERAL OR DERABLES Final Result [facility] [address] [facility] Department [place] [address] * Occult blood, fecal non neoplasm screening (04/08/2015 6:10 PM CDT) Stool Occult Blood NEGATIVE NEGATIVE 04/08/2015 6:10 PM CDT 04/08/2015 9:18 PM CDT Narrative [facility] HISTORICAL RESULTS - 04/08/2015 9:37 PM CDT Collected By ck us Zuly Buckner MD LAB BODY FLUIDS AND STOOLS ORDERABLES Final Result [facility] HISTORICAL RESULTS from Last 3 Months or Most Recently Relevant to Health Maintenance Insurance [facility] MEDICARE ADVANTAGE IDMI [facility] MEDICARE ADVANTAGE [facility] MEDICARE ADVANTAGE IDPA Advance Directives For more information, please contact: [phone] * Full Code (Latest Code Status on File) Date Activated Date Inactivated Comments 10/20/2024 10:30 PM 10/26/2024 8:26 PM * Full Code Date Activated Date Inactivated Comments 01/28/2023 7:20 AM 01/31/2023 7:24 PM Care Teams [employer] Relationship Specialty Start Date End Date Tracy Archibald MD [address] [address] PCP - General Gastroenterology 11/07/21 Kelly Salvador MD Referring Physician Gastroenterology 07/26/20 Isatu Taylor, NOA [address] [place] [id number] Nurse Practitioner Medical Oncology 01/25/23
--- OUTSIDE RECORDS SUMMARY | 2025-03-27 16:04 | XMS_ITS | Clinical Summary ---
Author Organization [facility] Address [address] [place] [address] Care Team Providers Care Global Commodity Manager Name Role Phone Kelly Salvador MD Unavailable [phone] Tracy Archibald MD Primary Care Provider Isatu Taylor NP Unavailable [phone] Allergies Active Allergy Reactions Criticality Noted Date [...] 1 tablet (125 mcg total) by mouth loft rigger before breakfast 0 Active lisinopriL (PRINIVIL,ZESTR [place]) [...] mcg total) by mouth daily Active vit C,A-Gk-plqci-alton tein-zeaxan (PreserVision AREDS-2) 250-90-40-1 mg capsule Take [...] ambulatory tools at home -PT/OT to eval/treat Encounters Date Type Department Care Team Description 03/06/2025 2:00 PM CDT Infusion [facility] at [address] [address] Iron deficiency anemia, unspecified iron deficiency anemia type (Primary Dx) 03/06/2025 Orders Only [facility] Hematology [facility] [address] [place] [address] Ana Catherine RN 02/26/2025 3:00 PM CDT Office Visit [facility] Physicians [facility] Hematology [address] [place] [address] Yola Acevedo NP Iron deficiency anemia, unspecified iron deficiency anemia type (Primary Dx); Palpitations; Other fatigue 02/26/2025 2:30 PM CDT Lab [facility] at [address] [address] Iron deficiency anemia, unspecified iron deficiency anemia type 02/23/2025 Orders Only [facility] Hematology [facility] [address] [place] [address] Agnie Longo Iron deficiency anemia, unspecified iron deficiency anemia type (Primary Dx) 02/23/2025 Telephone [facility] Hematology [address] [place] [address] [address] [place] [address] Angie Longo from Last 3 Months Immunizations Immunization Administration Dates Next Due Flucelvax Influenza Quad 09/02/2020 Influenza, Quadrivalent, Split, Intramuscular Influenza, Quadrivalent, Spl it, Preservative Free, Intramuscular 07/06/2018 Pneumococcal Polysaccharide PPV23 12/23/2021 Surgical History Surgery Date Site/Laterality Comments COLONOSCOPY EYE SURGERY 09/24/2020 - 10/24/2020 Right UPPER GASTROINTESTINAL ENDOSCOPY ROTATOR CUFF REPAIR 06/03/2023 Family History Medical History Relation Name Comments Diabetes Maternal Grandmother Diabetes Mother Relation Name Status Comments Maternal Grandmother Mother Social History Tobacco Use Types Packs/Day Years Used Date Smoking Tobacco: Never Smokeless Tobacco: Never Alcohol Use Standard Drinks/Week Comments Never 0 (1 standard drink = 0.6 oz pur e alcohol) [facility] Utilities Answer Date Recorded In the past 12 months has th e electric, gas, oil, or water company threatened to shut off services in your home? Yes 10/23/2024 Social Connection and Isolation Panel [NHANES] A nswer Date Recorded In a typical week, how many times do you talk on the phone with family, friends, or neighbors? Twice a week 10/23/2024 How often do you get together with friends or re latives? Twice a week 10/23/2024 How often do you attend episcopal or advent serv ices? Never 10/23/2024 Do you belong to any clubs o r organizations such as episcopal groups, unions, fraternal or athletic groups, or [...] any time in the past 12 m [facility], were you homeless or living in a snf (including now)? No 10/23/2024 Personal Safety Answer Date Recorded Have you ever been in or are you currently in a harmful physical or emotional relationship or is someone making you feel afraid or unsafe? 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 Gender Identity Not on file Sexual Orientation Not on file Obstetrics History Last Filed Vital Signs Vital Sign Reading [...] 02/26/2025 3:00 PM CDT Plan of Treatment Health Maintenance Due Date Last Done Comments Breast Cancer Screening-Mammogram 1955 Colon Cancer Screening-Colonoscopy 1955 Depression Screening 1955 DTaP/Tdap/Td Vaccine (1 - Tdap) 1966 Hepatitis B Screening 1973 Zoster Vaccine (1 of 2) 2005 Well Visit 65+ 2020 Osteoporosis Screening-Bone Density Scan 10/20/2020 10/20/2018 Pneumococcal vaccine 65+ (2 of 2 - PCV) 12/23/2022 12/23/2021 Influenza Vaccine (Season Ended) 2025 12/23/2021, 09/02/2020, 07/06/2018 Fall Risk Assessment 10/26/2025 10/26/2024 Colon Cancer Screening-FIT Discontinued 04/08/2015 Hepatitis C Screening Completed 01/30/2023 Procedures Procedure Name Priority Date/Time Associated Diagnosis [...] was last reviewed 2021. Testing performed by: [address] [address] Blood 02/26/2025 2:50 PM CDT 02/26/2025 2:51 PM CDT Yola Acevedo NP LAB BLOOD ORDERABLES Final Result [place] [address] [facility] Department [place] [address] * Differential, auto (02/26/2025 2:50 PM CDT) Neutrophil abs 5.49 1.50 - 6.50 K/cumm Comment:Testing performed by : [address] [address] Imm gran abs 0.01 0.00 - 0.10 K/cumm [facility] Comment:Testing performed by : [address] [address] Lymphocyte abs 1.46 0.80 - 3.30 K/cumm [facility] Comment:Testing performed by : [address] [address] Monocyte abs 0.47 0.20 - 0.80 K/cumm [facility] Comment:Testing performed by : [address] [address] Eosinophil abs 0.27 0.00 - 0.50 K/cumm [facility] Comment:Testing performed by : [address] [address] Basophil abs 0.05 0.00 - 0.10 K/cumm [facility] Comment:Testing performed by : [address] [address] Neutrophil pct 70.9 % [facility] Comment: Interpretive Data Percent cell count reference ranges are not reported, since discordance with absolute values may lead to misinterpretation of CBC data. Current Interpretive Data was last revised on 2018. Testing performed by: [address] [address] Imm gran pct 0.1 % [facility] Comment: Interpretive Data Percent cell count reference ranges are not reported, since discordance with absolute values may lead to misinterpretation of CBC data. Current Interpretive Data was last revised on 2018. Testing performed by: [address] [address] Lymphocyte pct 18.8 % [facility] Comment: Interpretive Data Percent cell count reference ranges are not reported, since discordance with absolute values may lead to misinterpretation of CBC data. Current Interpretive Data was last revised on 2018. Testing performed by: [address] [address] Monocyte pct 6.1 % [facility] Comment: Interpretive Data Percent cell count reference ranges are not reported, since discordance with absolute values may lead to misinterpretation of CBC data. Current Interpretive Data was last revised on 2018. Testing performed by: [address] [address] Eosinophil pct 3.5 % [facility] Comment: Interpretive Data Percent cell count reference ranges are not reported, since discordance with absolute values may lead to misinterpretation of CBC data. Current Interpretive Data was last revised on 2018. Testing performed by: [address] [address] Basophil pct 0.6 % [facility] Comment: Interpretive Data Percent cell count reference ranges are not reported, since discordance with absolute values may lead to misinterpretation of CBC data. Current Interpretive Data was last revised on 2018. Testing performed by: [address] [address] Blood 02/26/2025 2:50 PM CDT 02/26/2025 2:51 PM CDT us Yola Acevedo NP LAB BLOOD ORDERABLES Final Result [place] [address] [facility] Department [place] [address] * (ABNORMAL) Iron profile w/ IBC (02/26/2025 2:50 PM CDT) [facility] Iron 30(L) 35 - 145 mcg/dL Comment:Testing performed by : [address] [address] TIBC 335 250 - 400 mcg/dL [facility] Comment:Testing performed by : [address] [address] Transferrin saturation 9(L) 20 - 50 % [facility] Comment:Testing performed by : [address] [address] Blood 02/26/2025 2:50 PM CDT 02/26/2025 3:53 PM CDT Yola Acevedo SHEET ROCKER LAB BLOOD ORDERABLES Final Result Performing Organization Address City/State/[facility] Co de Phone Number [facility] Department [place] [address] * (ABNORMAL) CBC with auto differential (02/26/2025 2:50 PM CDT) [facility] WBC 7.75 3.80 - 9.90 K/cumm Comment:Testing performed by : [address] [address] Hgb 10.2(L) 11.9 - 15.5 g/dL [facility] [place] Comment:Testing performed by : [address] [address] Hct 32.6(L) 35.6 - 45.5 % [facility] [place] Comment:Testing performed by : [address] [address] Plt 308 150 - 400 K/cumm [facility] [place] Comment:Testing performed by : [address] [address] MPV 8.5(L) 9.1 - 12.3 fL [facility] [place] Comment:Testing performed by : [address] [address] RBC 3.77(L) 3.90 - 5.20 M/cumm [facility] Comment:Testing performed by : [address] [address] MCV 86.5 81.3 - 96.4 fL [facility] Comment:Testing performed by : [address] [address] MCH 27.1 27.1 - 33.3 pg [facility] Comment:Testing performed by : [address] [address] MCHC 31.3(L) 32.3 - 35.7 g/dL [facility] Comment:Testing performed by : [address] [address] RDW CV 13.3 11.1 - 14.9 % [facility] Comment:Testing performed by : [address] [address] RDW SD 41.6 35.7 - 48.1 fL [facility] Comment:Testing performed by : [address] [address] NRBC abs 0.00 0.00 - 0.01 K/cumm [facility] Comment:Testing performed by : [address] [address] ANC Prelim 5.49 1.50 - 6.50 K/cumm [facility] Comment: Interpretive Data The rapid ANC is a preliminary automated count and may vary from the final ANC (Neut Abs) reported in the WBC differential that follows. Current interpretive data was last revised 2025. Testing performed by: [address] [address] Blood 02/26/2025 2:50 PM CDT 02/26/2025 2:51 PM CDT Yola Acevedo NP LAB BLOOD ORDERABLES Final Result [facility] [place] [address] [facility] Department [place] [address] * (ABNORMAL) Reticulocyte Count (02/26/2025 2:50 PM CDT) [facility] Retics, absolute 68 20 - 87 K/cumm Comment:Testing performed by : [address] [address] Retics 1.8 0.4 - 2.9 % [facility] Comment:Testing performed by : [address] [address] Reticulocyte Hgb 29.4(L) 30.5 - 38.0 pg [facility] [place] Comment:Testing performed by : [address] [address] Blood 02/26/2025 2:50 PM CDT 02/26/2025 2:51 PM CDT Yola Acevedo SHEET ROCKER LAB BLOOD ORDERABLES Final Result Performing Organization Address [facility] Co de Phone Number [address] [employer] [place] [address] * Ferritin (02/26/2025 2:50 PM CDT) [facility] Ferritin 47 15 - 150 ng/mL Comment:Testing performed by : [address] [address] Blood 02/26/2025 2:50 PM CDT 02/26/2025 3:53 PM CDT Yola Acevedo NP LAB BLOOD ORDERABLES Final Result Performing Organization Address [facility] Co de Phone Number [address] [employer] [place] [address] * (ABNORMAL) Comprehensive metabolic panel (02/26/2025 2:50 PM CDT) [facility] Sodium 142 135 - 145 mmol/L Comment:Testing performed by : [address] [address] Potassium, pl 4.2 3.3 - 4.9 mmol/L [facility] [place] Comment:Testing performed by : [address] [address] Chloride 104 97 - 110 mmol/L [facility] Comment:Testing performed by : [facility], [address] [place] [address], [place]., [address] CO2 25 22 - 32 mmol/L [facility] Comment:Testing performed by : [address], [place]., [address] Anion gap 13 2 - 15 mmol/L [facility] Comment:Testing performed by : [address], [place]., [address] BUN 26(H) 6 - 25 mg/dL [facility] Comment:Testing performed by : [address], [place]., [address] Creatinine 1.20(H) 0.60 - 1.10 mg/dL [facility] Comment:Testing performed by : [address] [address] Glucose 134 70 - 199 mg/dL [facility] Comment: Interpretive Data Fasting glucose >/= 126 [...] was last revised 2022. Testing performed by: [address] [address] Calcium 9.2 8.5 - 10.3 mg/dL [facility] Comment:Testing performed by : [address] [address] Bilirubin, total <0.2 0.1 - 1.2 mg/dL [facility] Comment:Testing performed by : [address] [address] Protein, pl 7.5 6.5 - 8.5 g/dL [facility] Comment:Testing performed by : [address], [place]., [address] Albumin 4.3 3.5 - 5.0 g/dL [facility] Comment:Testing performed by : [facility], [address] [place] [address]., [address] Alk phos 125 40 - 130 Units/L [facility] Comment:Testing performed by : [address] [address] ALT 12 7 - 45 Units/L [facility] Comment:Testing performed by : [address] [address] AST 21 10 - 45 Units/L [facility] Comment:Testing performed by : [address] [address] Blood 02/26/2025 2:50 PM CDT 02/26/2025 2:51 PM CDT Yola Acevedo NP LAB BLOOD ORDERABLES Final Result [facility] Department [place] [address] * Hepatitis panel, acute (01/30/2023 8:41 AM CDT) Hep A IgM Nonreactive Nonreactive [facility] Comment: Interpretive Data: If Hep A IgM Ab is reported as Equivocal, a new sample should be drawn in two weeks for testing. Current interpretive data was last revised on 20. Hep B core IgM Nonreactive Nonreactive [facility] Comment: Interpretive Data If HepB Core IgM Ab is reported as Equivocal, a new sample should be drawn in two weeks for testing. Current interpretive data was last revised on 20. Hep C Ab Nonreactive Nonreactive [facility] Comment: Interpretive Data Nonreactive: Antibodies to HCV [...] last revised on 2020. HepBsAg Nonreactive Nonreactive [facility] Blood 01/30/2023 8:41 AM CDT 01/30/2023 9:02 AM CDT us Laura Church DO LAB MICROBIOLOGY - GENERAL OR DERABLES Final Result [facility] [address] [facility] Department [place] [address] * Occult blood, fecal non neoplasm screening (04/08/2015 6:10 PM CDT) Stool Occult Blood NEGATIVE NEGATIVE 04/08/2015 6:10 PM CDT 04/08/2015 9:18 PM CDT Narrative [facility] HISTORICAL RESULTS - 04/08/2015 9:37 PM CDT Collected By ck us Zuly Buckner MD LAB BODY FLUIDS AND STOOLS ORDERABLES Final Result Performing Organization Address City/[facility] Co de Phone Number [facility] HISTORICAL RESULTS from Last 3 Months or Most Recently Relevant to Health Maintenance Insurance [facility] [employer] Address: [address] [address] [place] [address] IDPA IDPA [facility] Address: [address] [address] [place] [address] [facility] ADVANTAGE IDPA Advance Directives For more information, please contact: [phone] * Full Code (Latest Code Status on File) Date Activated Date Inactivated Comments 10/20/2024 10:30 PM 10/26/2024 8:26 PM * Full Code Date Activated Date Inactivated Comments 01/28/2023 7:20 AM 01/31/2023 7:24 PM Care Teams Global Commodity Manager Relationship Specialty [place] [address] [place] [address] PCP - General Gastroenterology 11/07/21 Kelly Salvador MD Referring Physician Gastroenterology 07/26/20 Isatu Taylor, SHEET ROCKER [address] [place] [address] Nurse Practitioner Medical Oncology 01/25/23
--- OUTSIDE RECORDS SUMMARY | 2025-03-27 16:04 | XMS_ITS | Clinical Summary ---
Author Organization [facility] [employer] [facility] [employer] [facility] Address [address] [address] Phone Care Team Providers Care Grain [employer] Yeast Plants Supervisor Name Role Phone Unavailable Primary Care Provider Unavailabl e Allergies Active Allergy Reactions Criticality Noted Date Comments Prochlorperazine Anaphylaxis,Other (s ee comments) High 04/19/2012 Anaphylaxis Medications amLODIPine (NORVASC) 10 MG tablet Take 10 mg by mouth 1 (one) time each day 05/16/2020 Active aspirin 325 MG EC tablet Take 325 mg by mouth 1 (one) time each day Active cinacalcet (SENSIPAR) 30 MG tablet Take 1 tablet by mouth 1 (one) time each day 09/28/2022 Active furosemide (LASIX) 40 MG tablet Take 1 tablet by mouth 1 (one) time each day if needed 11/30/2022 Active HYDROcodone-ck taminophen (NORCO) 5-325 MG per tablet TAKE 1 TO 2 TABLETS BY MOUTH EVERY 4 TO 6 HOURS NEEDED FOR PAIN. MAX OF 8 TABLETS PER DAY. Active levothyroxine (SYNTHROID, LEVOTHROID) 125 MCG tablet Take 1 tablet by mouth 1 (one) time each day Active lisinopril 40 MG tablet Take 1 tablet by mouth 1 (one) time each day Active methylphenidate (RITALIN) 10 MG tablet Take 1 tablet by mouth 1 (one) time each day in the morning AND 5MG IN PM Active ondansetron (ZOFRAN) 4 MG tablet Take 1 tablet by mouth 3 (three) times a day if needed Active pantoprazole (PROTONIX) 20 MG EC tablet Take 1 tablet by mouth in the morning and 1 tablet in the evening. Active rosuvastatin (CRESTOR) 40 MG tablet Take 40 mg by mouth 1 (one) time each day Active sertraline (ZOLOFT) 100 MG tablet Take 1 tablet by mouth 1 (one) time each day Active DULoxetine (CYMBALTA) [address] capsule Take 60 mg by mouth 1 (one) time each day Do not crush or chew. Active gabapentin (NEURONTIN) 600 MG tablet Take 600 mg by mouth 1 (one) time each day in the morning 600 in the afternoon, 2 tab in bed Active potassium chloride 10 MEQ CR tablet Take 10 mEq by mouth in the morning and 10 mEq in the evening. Do not crush, chew, or split.. Active tiZANidine (ZANAFLEX) 4 MG capsule Take 8 mg by mouth at bed time Active zinc gluconate 50 MG tablet Take 50 mg by mouth 1 (one) time each day Active b complex vitamins capsule Take 1 capsule by mouth 1 (one) time each day Active omega-3 (FISH OIL) 1000 MG capsule Take 2,000 mg by mouth 1 (one) time each day Active Active Problems Problem Noted Date Diagnosed Date Hyperglobulinemia 08/17/2023 Polyneuropathy 08/17/2023 Gastroesophageal reflux disease 08/16/2023 Hyperparathyroidism 08/16/2023 Stage 3a chronic kidney disease 08/16/2023 Iron deficiency anemia 04/25/2012 3 Overview (08/11/2023): Overview: Hgb = 8.1. ? Etiology. -Ferritin 26 -Transferrin 330 -TIBC 3 -Iron: 13 -Started Ferrous Gluconate Hgb = 8.1. ? Etiology. -Ferritin 26 -Transferrin 330 -TIBC 3 -Iron: 13 -Started Ferrous Gluconate Overview: Overview: Hgb = 8.1. ? Etiology. [...] 3 -Iron: 13 -Started Ferrous Gluconate Overview: Overview: Hgb = 8.1. ? Etiology. [...] -Iron: 13 -Started Ferrous Gluconate Hypertension 04/23/2012 08/11/2023 Overview (08/11/2023): Overview: Stable. SBP 130-140. -On lisinopril, Norvasc [...] hypotension -Restart tomorrow if BP stable Overview: Stable. SBP 130-140. -On lisinopril, Norvasc [...] -Restart tomorrow if BP stable Hypothyroidism 04/23/2012 08/11/2023 Overview (08/11/2023): Overview: Stable. TSH = 0.37 -Continue Synthroid Stable. TSH = 0.37 -Continue Synthroid Overview: Overview: Stable. TSH = 0.37 -Continue Synthroid Stable. TSH = 0.37 -Continue Synthroid Overview: Stable. TSH = 0.37 -Continue Synthroid Stable. TSH = 0.37 -Continue Synthroid Overview: Overview: Stable. TSH = 0.37 -Continue Synthroid Stable. TSH = 0.37 -Continue Synthroid Immunizations Immunization Administration Dates Next Due Influenza, MDCK, PF, Quadrivalent 09/02/2020 Influenza, Quadrivalent, Preservative Free 07/06 Influenza, Quadrivalent, With Preservative 12/23 PPD Test 04/22/2015 Pneumococcal Polysaccharide 12/23/2021 Family History Medical History Relation Comments Dementia Father Diabetes Maternal Grandmother Kidney disease Maternal Grandmother Anemia Mother Diabetes Mother Hypertension Mother Relation Status Comments Father Maternal Grandmother Mother Social History Tobacco Use Types Packs/Day Years Used Date Smoking Tobacco: Never Smokeless Tobacco: Never Tobacco Cessation:Counseling Given: Not Answered Alcohol Use Standard Drinks/Week Comments Never 0 (1 standard drink = 0.6 oz pur e alcohol) Comments Unknown Sex and Gender Information Value Date Recorded Sex Assigned at Not on file Legal Sex Female 10:03 AM EDT Gender Identity Not on file Sexual Orientation Not on file Last Filed Vital Signs Vital Sign Reading Time Taken Comments Blood Pressure 142/70 09/14/2023 12:32 PM ANIMAL RESCUER Pulse 88 09/14/2023 12:32 PM ANIMAL RESCUER Temperature 36 C (96.8 F) 09/14/2023 12:32 PM ANIMAL RESCUER Respiratory Rate 18 09/14/2023 12:32 PM ANIMAL RESCUER Oxygen Saturation 98% 09/14/2023 12:32 PM ANIMAL RESCUER Inhaled Oxygen Concentration - - Weight 73.5 kg (162 lb) 09/14/2023 12:32 PM ANIMAL RESCUER Height 162.6 cm (5' 4) 09/14/2023 12:32 PM ANIMAL RESCUER Body Mass Index 27.81 09/14/2023 12:32 PM ANIMAL RESCUER Plan of Treatment Health Maintenance Due Date Last Done Comments Breast Cancer Screening 1955 Colorectal Cancer Screening: Annual FOBT 2004 Colorectal Cancer Screening: Colonoscopy 2004 Colorectal Cancer Screening: Sigmoidoscopy 2004 Pneumococcal Vaccine: 50+ Years (2 of 2 - PCV) 12/23/2022 12/23/2021 Influenza Vaccine (Season Ended) 2025 12/23/2021, 09/02/2020, 07/06/2018 Hepatitis B Vaccine Aged Out No longe r eligible based on patient's age to complete this topic Insurance Medicaid [place] UHC Medicare
== END 2025-03-27 16:00 | disposition home or self-care (01) ==
PROVIDERS: PCP Internal Medicine Gastroenterology; Visit Provider Internal Medicine Gastroenterology
DX: B34.9 Viral infection, unspecified (principal); K44.9 Diaphragmatic hernia without obstruction or gangrene
CPT/HCPCS: 71046